=== PATIENT | female | born 1955 | race Caucasian/White ===

== ENCOUNTER 2018-08-25 13:43 | Day surgery (SDC) | payer MEDICARE, OTHER, SELFPAY ==
[2018-08-25] VITALS (9 sets, daily range): BP systolic 63–139; BP diastolic 37–79; PULSE 63–74; RESP 8–18; TEMP 36.1–36.7; O2SAT 90–100; BMI 24.7
[2018-08-25] MEDS: SODIUM CHLORIDE 0.9% 1,000 ML 200 ML IV (14:32)
--- NOTE | 2018-08-25 15:45 | PM.PREOP ---
Pre-operative Note Interval Note Pre-op Check: Yes History & Physical Reviewed by Physician Changes: No
[2018-08-25] MEDS: fentaNYL 250 MCG/5 ML INJ IV (16:06)
[2018-08-25] MEDS: MIDAZOLAM 5 MG/5 ML VIAL IV (16:06)
--- NOTE | 2018-08-25 16:13 | PM.OP.1 ---
Operative Date/Time/Diagnoses Date of procedure: 08/25/18 Time of procedure: 16:13 Pre-op diagnosis: Personal history of anal cancer Screening Post-op diagnosis: same Procedure & Clinicians Procedure: Colonoscopy to the cecum Same procedure as scheduled: Yes Indications: Last colonoscopy 2009 Surgeon: Kala Carty Click Yes if Unassisted: Yes Anesthesia Type: Sedation (Versed 4 mg; fentanyl 150 mcg) Operative Notes Findings: 1. Excellent prep 2. No polyps or mass lesions 3. No AV malformations 4. Very very minimal diverticulosis limited to the sigmoid region 5. Normal anal canal and anal mucosa 6. Essentially normal colonoscopy for age Closure Type: not applicable Specimen(s): none sent Estimated Blood Loss (mL): 0 Procedure in detail: After obtaining informed consent, the patient was brought to the GI suite and placed in the left lateral decubitus position on the examination table. After placement of appropriate monitors, the patient was given incremental doses of Versed and Fentanyl until an appropriate level of sedation was achieved. A time out was held per SCOAP protocol. A digital rectal examination was performed and did not reveal any masses or obstructing lesions. The colonoscope was gently passed into the patient's anus and the entire colon navigated to the level of the cecum with minimal difficulty. Once in the cecum, the scope was withdrawn being sure to go before and beyond all mucosal folds and prominences and get an excellent examination. The findings are noted above. At the level of the rectal vault, the scope was retroflexed and the internal anal canal was examined. The scope was straightened and air aspirated from the colon. The instrument was removed from the patient's body and the procedure was concluded. The patient was allowed to awaken from sedation without difficulty and taken to the post-anesthesia care unit in good condition. Total sedation time 14 min Total withdrawal time 9 min 57 sec Complications: none Condition: stable Disposition: PACU Plan for aftercare: 1. Discharge to home 2. Plan for next colonoscopy in 5 years or as clinically indicated
--- NOTE | 2018-08-25 16:22 | SUR.PHASEI ---
bp low, iv fluids wide open.
--- NOTE | 2018-08-25 16:30 | SUR.PHASEI ---
bp better, more awake, drank juice.
== END 2018-08-25 16:58 | disposition home or self-care (01) ==
PROVIDERS: PCP Family Medicine; Visit Provider Surgery
PROC: 0DJD8ZZ Inspection of Lower Intestinal Tract, Via Natural or Artificial Opening Endoscopic (ICD-10-PCS; CPT 45378; principal; 2018-08-25 16:00)
DX: Z85.038 Personal history of other malignant neoplasm of large intestine (principal); K57.30 Diverticulosis of large intestine without perforation or abscess without bleeding; F17.210 Nicotine dependence, cigarettes, uncomplicated
CPT/HCPCS: 45378; 99152; J2250; J3010

== ENCOUNTER → 2019-01-23 14:24 | Outpatient (CLI) | payer MEDICARE, OTHER, SELFPAY ==
[2019-01-23 14:47] LABS: Influenza A and B by PCR Rapid Negative (Negative)
== END ==
PROVIDERS: PCP Family Medicine; Visit Provider Physician Assistant
DX: R68.89 Other general symptoms and signs (principal)
CPT/HCPCS: 87400

== ENCOUNTER 2019-05-02 18:19 | Emergency (ER) | payer MEDICARE, OTHER, SELFPAY ==
--- NOTE | 2019-05-02 18:26 | ED_ITS ---
HPI - General Adult General Chief complaint: Neuro Symptoms/Deficit Stated complaint: ?mini strokes x2 days Time Seen by Provider: 05/02/19 18:25 Source: patient Mode of arrival: ambulatory Limitations: no limitations History of Present Illness HPI narrative: 63-year-old female here for evaluation of concerns for possible mini-stroke. She states that for the past 3-4 days she has had which she feels like is weakness in her left lower extremity. She states it is causing her to have some balance issues. Her states that she has had some word-finding issues however the patient states that that has been a while ago and not been over the past 3-4 days. She also has passed out in the past but again this is been some time ago. Patient states that was because she was not eating all that much and was dehydrated at the time. She does have a history of lower back pain. She thinks that maybe this is worsening over the past couple days. She has no urinary symptoms. Does have a history of breast cancer and anal cancer. Is not currently undergoing treatment. She does see an oncologist on a yearly basis. Her last oncologist visit was in June of last year. Her last PET scan was several years ago. Related Data Home Medications Medication Instructions Recorded Confirmed IBUPROFEN (Motrin / Advil) 800 mg PO PRN #0 03/25/10 01/23/19 Previous Rx's Medication Instructions Recorded nortriptyline 10 mg capsule 10 mg PO BEDTIME #30 cap 11/12/18 cyclobenzaprine 10 mg PO TID PRN #20 tab 05/02/19 meloxicam [Mobic] 7.5 mg PO DAILY #30 tab 05/02/19 Allergies Allergy/AdvReac Type Severity Reaction Status Date / Time No Known Drug Allergies Allergy Verified 01/23/19 14:19 Review of Systems Constitutional Denies chills, Reports fatigue, Denies frequent falls, Denies headache(s), Reports malaise and Reports weakness (Left lower extremity) Eyes Denies change in vision and Denies diplopia ENT Ears, Nose, Mouth, and Throat: Denies vertigo, Reports dizziness, Denies headache(s), Reports disequilibrium, Denies sinus pressure and Denies sore throat Cardiovascular Denies chest pain and Denies dyspnea Respiratory Denies cough and Denies dyspnea Gastrointestinal Gastrointestinal: Denies abdominal pain, Denies nausea and Denies vomiting Genitourinary Denies dysuria and Denies vaginal discharge Musculoskeletal Reports abnormal gait, Reports back pain, Denies myalgias, Denies arthralgias and Reports muscle weakness (Left lower extremity) Integumentary/Breasts Denies new lesions and Denies rash Neurologic Reports abnormal gait, Denies behavioral changes, Denies vertigo, Reports dizziness, Denies frequent falls, Denies headache(s), Reports disequilibrium and Reports weakness (Left lower extremity) Psychiatric Denies behavioral changes Endocrine Reports fatigue Hematologic/Lymphatic Denies easy bleeding and Denies easy bruising Allergic/Immunologic Denies urticaria PFSH Medical History Anal cancer (Acute) Breast cancer (Acute) H/O: hysterectomy (Resolved) Social History marital status: household members: spouse Smoking Status: Current every day smoker alcohol intake: never substance use type: does not use Exam Initial Vital Signs Initial Vital Signs: Vital Signs Pulse Rate 69 05/02/19 18:27 Respiratory Rate 20 05/02/19 18:27 Blood Pressure 228/96 H 05/02/19 18:27 Pulse Oximetry 96 05/02/19 18:27 Const General: cooperative, comfortable, well developed, well groomed and No acute distress HENAR Head: normal to inspection and normocephalic Resp Effort & Inspection: normal respiratory effort Auscultation: clear to auscultation bilaterally Cardio Rate: regular rate Rhythm: regular rhythm GI Inspection: non-distended Palpation: soft and No firm Skin Lesions: no lesions Rashes: no rashes Neuro General: alert, awake and oriented x3 Cranial Nerves: CN's II-XI intact bilaterally Cognition: normal cognition Speech: speech normal Gait: normal gait Motor: muscle tone normal throughout Sensory Exam: no sensory deficits noted Coordination: [id number] test normal Extrem General: normal to inspection and capillary refill normal Psych Appearance: grossly normal and well kempt Mood: congruent mood Scores GCS James coma scale eye opening: Spontaneous James coma scale verbal response: Orientated James coma scale motor response: Obey commands James coma scale total score: 15 NIH Stroke Scale Level of Conciousness: Alert, keenly responsive Ask month/age: Answers both questions correctly. Open/close eyes, close hand: Performs both tasks correctly Best gaze horizontal: Normal Visual guerra: No visual loss Facial palsy: Normal symetrical movement Left arm drift: No drift for full 10 sec Right arm drift: No drift for full 10 sec Left leg drift: No drift for full 10 sec Right leg drift: No drift for full 10 sec Limb ataxia: Absent Sensory on face/arms/legs: Normal, no sensory loss Best language: No aphasia, normal Dysarthria: Normal Extinction or inattention: No abnormality Total NIH Stroke scale score: 0 Course Orders Ordered: ED Orders 05/02/19 18:46 XR lumbar spine 2-3V Stat Vital Signs - 8 hr 05/02/19 18:27 05/02/19 19:29 Pulse Rate 69 60 Respiratory Rate 20 Blood Pressure 228/96 H Blood Pressure [Right Arm] 149/86 H Pulse Oximetry 96 96 Medical Decision Making Imaging Data Lumbar spine x-ray: Radiologist's impression: [address] [address] XRay Report Signed Patient: Maryjane Frost RMR#: [id number] : [id number]:[id number] Age/Sex: 63 / FDate of Service: 05/02/19 Loc: ED Accession Number: [id number] Procedure: XR lumbar spine 2-3V Ordering Provider: Gaston Abrams D.O. PROCEDURE: XR LUMBAR SPINE 2-3V INDICATIONS: LBP TECHNIQUE: 3 views of the lumbar spine were acquired. COMPARISON: None. FINDINGS: Bones: 5 [id number] vertebrae are present. There is normal bony alignment. No vertebral body compression fractures. No suspicious bony lesions. Mild to moderate multilevel degenerative changes of the lumbar spine as evidenced by facet arthropathy, a redo with the space height loss, and reactive endplate changes. Soft tissues: Overlying bowel gas pattern is normal. No suspicious soft tissue calcifications. IMPRESSION: Mild to moderate multilevel degenerative changes of the lumbar spine. Dictated by: Orestes Doshi M.D. on 05/02/2019 at 19:36 Approved by: Orestes Doshi M.D. on 05/02/2019 at 19:38 MDM Narrative Medical decision making narrative: Patient has a normal neurologic exam here in the emergency department. She ambulates without problems. No problems with speaking. Has no objective findings. I do suspect that her left leg symptoms are the result of worsening lower back pain. I did consider other etiologies such as metastasis given her history of breast cancer and anal cancer. The x- ray showed no acute pathology. I did inform the patient that this was not the most definitive test. I do not feel that an emergent MRI or PET scan is warranted. We did discuss this with the patient. Informed her that she should talk with her oncologist and her primary doctor about further testing. We did discuss return precautions. Was sent home with Mobic and muscle relaxers. The patient and her expressed understanding and agreement plan. Discharge Plan Departure Patient Disposition: Home Clinical Impression: Radicular neuropathy, Dizziness Discharge Date/Time: 05/02/19 20:10 Instructions: DI for Dizziness-Nonvertigo Activity Restrictions/Additional Instructions: Take the medications as directed. Contact your primary doctor tomorrow to discuss the indications for an MRI. I would also contact your oncologist tomorrow to discuss follow-up. Return to the emergency department for any new or worsening symptoms Prescriptions: New cyclobenzaprine 10 mg tablet 10 mg PO TID PRN (Reason: muscle spasm) Qty: 20 RF: 0 meloxicam [Mobic] 7.5 mg tablet 7.5 mg PO DAILY Qty: 30 RF: 0 No Action IBUPROFEN (Motrin / Advil) 800 mg PO PRN Qty: 0 RF: 0 nortriptyline 10 mg capsule 10 mg PO BEDTIME Qty: 30 RF: 11 Referrals: Sangeetha Lara DO [Primary Care Provider] -
[2019-05-02 18:27] VITALS: BP 228/96; PULSE 69; RESP 20; O2SAT 96
--- NOTE | 2019-05-02 18:46 | DI.RAD.S_ITS ---
PROCEDURE: XR LUMBAR SPINE 2-3V INDICATIONS: LBP TECHNIQUE: 3 views of the lumbar spine were acquired. COMPARISON: None. FINDINGS: Bones: 5 [id number] vertebrae are present. There is normal bony alignment. No vertebral body compression fractures. No suspicious bony lesions. Mild to moderate multilevel degenerative changes of the lumbar spine as evidenced by facet arthropathy, a redo with the space height loss, and reactive endplate changes. Soft tissues: Overlying bowel gas pattern is normal. No suspicious soft tissue calcifications. IMPRESSION: Mild to moderate multilevel degenerative changes of the lumbar spine. Dictated by: Orestes Doshi M.D. on 05/02/2019 at 19:36 Approved by: Orestes Dsohi M.D. on 05/02/2019 at 19:38
[2019-05-02 19:29] VITALS: BP 149/86; PULSE 60; O2SAT 96
== END 2019-05-02 20:10 | disposition home or self-care (01) ==
PROVIDERS: Emergency Provider Emergency Medicine; PCP Family Medicine
DX: M54.10 Radiculopathy, site unspecified (principal); R42 Dizziness and giddiness
CPT/HCPCS: 72100; 99282; 99283

== ENCOUNTER → 2019-06-09 07:38 | Outpatient (CLI) | payer MEDICARE, OTHER, SELFPAY ==
--- NOTE | 2019-06-09 | DI.MRI.S_ITS ---
PROCEDURE: MR LUMBAR SPINE WO/W CON INDICATIONS: LUMBAR RADICULOPATHY/HISTORY OF CANCER TECHNIQUE: Noncontrast sagittal T1 spin echo and T2 fast spin echo, sagittal STIR, axial T1 and T2 fast spin echo through the lumbar spine. In cases with scoliosis, additional coronal T2 fast spin echo may be performed. After the administration of contrast, sagittal and axial T1 spin echo with fat saturation through the lumbar spine. COMPARISON: None. FINDINGS: Image quality: Excellent. Alignment and curvature: There is trace L4-L5 anterolisthesis secondary to facet hypertrophy. Marrow: Marrow is of normal overall signal. No acute vertebral body compression fractures. No suspicious marrow enhancement. Spinal cord: Conus medullaris terminates at the L2 level. Visualized spinal cord demonstrates normal signal, without suspicious enhancement. Paraspinous soft tissues: No paravertebral masses or abnormal enhancement. L1-L2: Loss of the signal and slight loss of disc height. Moderate, diffuse disc bulge. Mild narrowing of the central canal. Mild right neural foraminal narrowing. No neural impingement. There is a fissure in the right foraminal annulus. L2-L3: Loss of this signal. Mild, diffuse disc bulge. No central stenosis. No neural foraminal narrowing. No neural impingement. L3-L4: Loss of the signal. Mild, diffuse disc bulge and mild bilateral facet hypertrophy. No central stenosis. Mild left neural foraminal narrowing. No neural impingement. L4-L5: Loss of disc signal. Mild, diffuse disc bulge. Mild right and moderate left facet hypertrophy. No central stenosis. Mild right and [id number] left neural foraminal narrowing. No neural impingement. L5-S1: Loss of the signal. Moderate, diffuse disc bulge. Mild bilateral facet hypertrophy. No central stenosis. Moderate to severe bilateral neural foraminal narrowing with slight compression of the exiting L5 nerve roots. There is a fissure in posterior annulus. IMPRESSION: 1. Multilevel degenerative disc disease. 2. Multilevel facet arthropathy. 3. Mild L1-L2 central canal narrowing. 4. Moderate to severe bilateral L5-S1 neural foraminal narrowing. Mild right and [id number] left L4-L5 neural foraminal narrowing. Mild right L1-L2 neural foraminal narrowing. Mild left L3-L4 neural foraminal narrowing. 5. Slight compression of the exiting bilateral L5 nerve roots secondary to neural foraminal narrowing. Please correlate with clinical data. 6. L1-L2 and L5-S1 disc annulus fissures. Dictated by: Alexandra Cee MD, PhD on 06/09/2019 at 13:21 Approved by: Alexandra Cee MD, PhD on 06/09/2019 at 13:30
--- NOTE | 2019-06-09 | DI.US.S_ITS ---
PROCEDURE: US ARTERIAL DUPLEX LE BI INDICATIONS: CLAUDICATION TECHNIQUE: Color and pulse Doppler interrogation was performed of both lower extremity arterial systems, with image documentation. COMPARISON: None. FINDINGS: Right lower extremity: Common femoral artery: 175 cm/sec, with triphasic flow. Deep femoral artery: 161 cm/sec, with monophasic flow. Proximal superficial femoral artery: 135 cm/sec, with biphasic flow. Mid superficial femoral artery: 78 cm/sec, with biphasic flow. Distal superficial femoral artery: 73 cm/sec, with biphasic flow. Popliteal artery: 48-57 cm/sec, with biphasic flow. Posterior tibial artery: 57 cm/sec, with monophasic flow. Anterior tibial artery/dorsalis pedis: 61 cm/sec, with a flow. García-scale imaging description: Mild calcific and soft plaque within the right lower extremity arterial vasculature Left lower extremity: Common femoral artery: 21 cm/sec, with monophasic flow. Deep femoral artery: 82 cm/sec, with reversed flow. Proximal superficial femoral artery: 68 cm/sec, with monophasic flow. Mid superficial femoral artery: There is free cm/sec, with monophasic flow. Distal superficial femoral artery: 23 cm/sec, with monophasic flow. Popliteal artery: 14 I-123 cm/sec, with monophasic flow. Posterior tibial artery: 12-13 cm/sec, with monophasic flow. Anterior tibial artery/dorsalis pedis: 12-14 cm/sec, with monophasic flow. García-scale imaging description: Moderate calcific and soft plaque. IMPRESSION: Left greater than right arterial insufficiency over the lower extremities bilaterally, including much of the left lower extremity having monophasic flow. This implies potential for pelvic arterial insufficiency at the common or external iliac artery level on the left. MR aortogram and lower extremity angiogram may be warranted depending on the clinical status and potential for surgical intervention. Dictated by: Ousmane Corado M.D. on 06/09/2019 at 13:19 Approved by: Ousmane Corado M.D. on 06/09/2019 at 13:32
== END ==
PROVIDERS: PCP Family Medicine; Visit Provider Family Medicine
DX: M51.16 Intervertebral disc disorders with radiculopathy, lumbar region (principal); M51.17 Intervertebral disc disorders with radiculopathy, lumbosacral region; M47.26 Other spondylosis with radiculopathy, lumbar region; M47.27 Other spondylosis with radiculopathy, lumbosacral region; M48.061 Spinal stenosis, lumbar region without neurogenic claudication; M48.07 Spinal stenosis, lumbosacral region
CPT/HCPCS: 72158; 93925; A9579

== ENCOUNTER → 2019-08-17 07:45 | Outpatient (CLI) | payer MEDICARE, OTHER, SELFPAY ==
--- NOTE | 2019-08-17 | DI.US.S_ITS ---
PROCEDURE: US ARTERIAL DUPLEX LE BI INDICATIONS: PERIPHERAL VASCULAR DISEASE, UNSPECIFIED TECHNIQUE: Color and pulse Doppler interrogation was performed of both lower extremity arterial systems, with image documentation. COMPARISON: [facility], , ARTERIAL DUPLEX LE BI, 06/09/2019, 8:29. FINDINGS: Right lower extremity: Right external iliac artery: 294 cm/s, biphasic flow Common femoral artery: Proximal 237 cm/s, distal 162 cm/sec, with biphasic flow. Deep femoral artery: 98 cm/sec, with biphasic flow. Proximal superficial femoral artery: 129 cm/sec, with biphasic flow. Mid superficial femoral artery: 73 cm/sec, with biphasic flow. Distal superficial femoral artery: 75 cm/sec, with biphasic flow. Popliteal artery: 48 cm/sec, with biphasic flow. Posterior tibial artery: 63, 43 cm/sec, with biphasic flow. Anterior tibial artery/dorsalis pedis: 47, 60 cm/sec, with biphasic flow. García-scale imaging description: External iliac artery stenosis. Proximal common femoral artery stenosis. Widely patent vasculature from the SFA to the ankle, with at least two-vessel runoff. Biphasic waveforms. Left lower extremity: External iliac artery: Occluded Common femoral artery: Proximal 58 cm/s, mid 183 cm/sec, distal 19 cm/s, with monophasic flow. Deep femoral artery: 11 cm/sec, with monophasic flow. Proximal superficial femoral artery: 83 cm/sec, with monophasic flow. Mid superficial femoral artery: 29 cm/sec, with monophasic flow. Distal superficial femoral artery: 22 cm/sec, with monophasic flow. Popliteal artery: 19 cm/sec, with monophasic flow. Posterior tibial artery: Proximal 16 cm/s, distal cm/sec, with monophasic flow. Anterior tibial artery/dorsalis pedis: Proximal 8 cm/s, distal 13 cm/sec, with monophasic flow. García-scale imaging description: Occluded left external iliac artery. Diffuse common femoral artery stenotic disease, wide patency below the common femoral artery with at least two-vessel runoff, but dampened, monophasic flow IMPRESSION: 1. Right lower extremity duplex arterial ultrasound significant for right external iliac artery stenosis, common femoral stenotic disease, and wide patency from the SFA to the ankle with at least two-vessel runoff. 2. Left lower extremity duplex arterial ultrasound significant for occlusion of the external iliac artery, diffuse common femoral disease, and patency below the common femoral with dampened monophasic flow. Dictated by: Manjit Muñoz M.D. on 08/17/2019 at 16:26 Approved by: Manjit Muñoz M.D. on 08/17/2019 at 16:56
== END ==
PROVIDERS: PCP Family Medicine; Visit Provider Family Medicine
DX: I70.203 Unspecified atherosclerosis of native arteries of extremities, bilateral legs (principal)
CPT/HCPCS: 93925

== ENCOUNTER 2019-10-08 14:20 | Emergency (ER) | payer MEDICARE, OTHER, SELFPAY ==
[2019-10-08 14:22] VITALS: BP 176/103; PULSE 78; RESP 12; TEMP 36.2; O2SAT 98; BMI 24.7
--- NOTE | 2019-10-08 14:56 | PC.NURSE ---
dropped pt off and told the senior front end web developer that she almost passed out. states he was talking to her and she didn't respond. no loc. pt doesn't remember the event
[2019-10-08 15:00] VITALS: BP 165/88; PULSE 64; RESP 9; O2SAT 97
--- NOTE | 2019-10-08 15:06 | ED.DIZZY ---
HPI - Dizziness General Chief Complaint: Syncope Stated Complaint: passed out Time Seen by Provider: 10/08/19 14:33 Source: patient Mode of arrival: Ambulatory History of Present Illness HPI Narrative: Patient comes emergency department stating that her told her he was ?dropping her off?. She states she has felt tired, and that she went to bed quite late last night, but that she has not otherwise felt ill. She states that she believes that her wanted to drop her office emergency department so that she could not be there for his doctor's appointment, which he was on his way to. Patient states she does not have any pain in her chest or abdomen. No shortness of breath. She states she feels a little more tired than she should feel for the amount of sleep she got. No other complaints at this time. Related Data Home Medications Medication Instructions Recorded Confirmed acetaminophen [Tylenol Extra 1,000 mg PO BEDTIME 10/08/19 10/08/19 Strength] aspirin 81 mg PO DAILY 10/08/19 10/08/19 bupropion HCl 150 mg PO DAILY 10/08/19 10/08/19 losartan 100 mg PO QPM 10/08/19 10/08/19 meloxicam 7.5 mg PO BID 10/08/19 10/08/19 Allergies Allergy/AdvReac Type Severity Reaction Status Date / Time No Known Drug Allergies Allergy Verified 01/23/19 14:19 Review of Systems Constitutional Constitutional: Denies chills, Reports fatigue, Denies fever(s), Denies frequent falls, Denies lethargy and Denies weakness Eyes Eyes: Denies change in vision, Denies eye discharge, Denies irritation and Denies loss of vision ENT Ears, Nose, Mouth, and Throat: Denies change in voice, Denies dizziness, Denies neck pain, Denies sore throat and Denies throat swelling Cardiovascular Cardiovascular: Denies chest pain, Denies irregular heart rhythm, Denies lightheadedness, Denies palpitations, Denies dyspnea, Denies dyspnea on exertion and Denies orthopnea Respiratory Respiratory: Denies cough, Denies dyspnea, Denies dyspnea on exertion and Denies wheezing Gastrointestinal Gastrointestinal: Denies abdominal pain, Denies change in bowel habits, Denies diarrhea, Denies nausea and Denies vomiting Genitourinary Genitourinary: Denies hematuria, Denies flank pain, Denies urinary incontinence and Denies urinary urgency Musculoskeletal Musculoskeletal: Denies back pain, Denies muscle weakness, Denies neck pain, Denies numbness and Denies tingling Integumentary/Breasts Skin/Breast: Denies pruritus, Denies erythema, Denies rash and Denies wounds Neurologic Neurologic: Denies behavioral changes, Denies confusion, Denies dizziness, Denies frequent falls, Denies loss of vision, Denies numbness, Denies tingling and Denies weakness Psychiatric Psychiatric: Denies anxiety, Denies behavioral changes, Denies confusion, Denies depression, Denies homicidal ideation and Denies suicidal ideation Endocrine Endocrine: Reports fatigue, Denies flushing and Denies palpitations Hematologic/Lymphatic Hematologic/Lymphatic: Denies easy bruising Allergic/Immunologic Allergic/Immunologic: Denies urticaria, Denies throat swelling and Denies wheezing Patient History Medical History Anal cancer (Acute) Breast cancer (Acute) Surgical History H/O: hysterectomy (Resolved) Social History marital status: household members: spouse Smoking Status: Current every day smoker alcohol intake: never substance use type: does not use Smoking Status: Current every day smoker Exam Initial Vital Signs Initial Vital Signs: Vital Signs Temperature 97.2 F L 10/08/19 14:22 Pulse Rate 78 10/08/19 14:22 Respiratory Rate 12 10/08/19 14:22 Blood Pressure 176/103 H 10/08/19 14:22 Pulse Oximetry 98 10/08/19 14:22 Const General: cooperative and well developed Nutritional Appearance: well nourished Orientation: alert, awake, oriented x3 and not confused [facility] Head: normocephalic and atraumatic Ears: external ears normal Nose: external nose normal and No nasal discharge Face and sinus: face symmetric and No dry mucous membranes Mouth: oral mucosae normal and moist mucous membranes Teeth and gingiva: dentition normal Eyes General: appearance normal, both eyes and all related structures Eyelids: eyelids normal Conjunctivae: conjunctivae normal Sclera: sclerae normal Pupils: PERRL EOM: EOM intact bilaterally Neck Neck: normal visual inspection, trachea midline, No lymphadenopathy, No midline deformity and No JVD Lymphatic: No lymphedema Chest Chest: normal inspection of the chest Resp Effort & Inspection: normal respiratory effort, able to speak in complete sentences, no respiratory distress and no use of accessory muscles Auscultation: clear to auscultation bilaterally, no rales, no rhonchi and no wheezes Cardio Rate: regular rate Rhythm: regular rhythm Heart Sounds: no click, no gallops, no murmurs and no rubs Pulses: normal peripheral pulses GI Inspection: non-distended Palpation: soft, no hepatosplenomegaly, No guarding, No pulsatile mass and No tender Auscultation: normal bowel sounds Back/Spine/Pelvis Back: No CVA tenderness Cervical Spine: cervical ROM normal and No pain with cervical ROM Thoracic/Lumbar Spine: thoracic and lumbar spine normal to inspection Skin General: no rashes or lesions noted, No jaundice and No petechiae Neuro General: alert, oriented x3, gait normal and no focal motor deficits Speech: speech normal Extrem General: full ROM, no clubbing, cyanosis or edema, no pedal edema and no calf tenderness Psych Appearance: well kempt Mental Status: mental status grossly normal Attitude: cooperative Thought Content: normal and suicidality Judgment: judgment good Course Course Course Narrative: Patient was worked up with labs and given a L of 0.9 normal saline. EKG was unremarkable, as were labs. The patient reported absolutely no symptoms in the emergency department other than feeling tired, and suspected that her significant other did not want her at his doctor's appointment. I did not find any emergent condition affecting this patient at this time, and I felt she was stable for discharge home. We have discussed home management of the symptoms, as well as the usual indications for return. Orders Ordered: Discontinued Medications Sodium Chloride (Normal Saline 0.9%) 1,000 mls @ 1,000 mls/hr IV BOLUS ONE Stop: 10/08/19 16:15 Last Infusion: 10/08/19 16:42 Dose: 0 mls/hr Documented by: Admin: 10/08/19 15:37 Dose: 1,000 mls/hr Documented by: DIAZ Vital Signs Vital signs: Vital Signs - 8 hr 10/08/19 14:22 Temperature 97.2 F L Pulse Rate 78 Respiratory Rate 12 Blood Pressure 176/103 H Pulse Oximetry 98 MDM - Dizziness Medical Records Attestation: I reviewed the patient's medical records. Lab Data Attestation: I reviewed the patient's lab results. Result diagrams: 10/08/19 14:40 10/08/19 14:40 Labs: Lab Results 10/08/19 10/08/19 Range/Units 14:40 14:40 WBC 6.3 (4.5-11.0) X10^3/uL RBC 5.14 (4.0-5.2) X10^6/uL Hgb 16.7 H (12.0-16.0) g/dL Hct 48.9 H (36-46) % MCV 95.1 (80-100) fL MCH 32.5 (26-34) PG MCHC 34.1 (30-36) % RDW 13.4 (11.6-14.8) % Plt Count 196 (150-400) X10^3/uL Neut % (Auto) 46.7 L (50-75) % Lymph % (Auto) 45.4 H (25-40) % Kings % (Auto) 5.9 (3-14) % Eos % (Auto) 1.3 L (2-4) % Baso % (Auto) 0.7 (0-2) % Neut # (Auto) 2900 (4391-0194) /uL Lymph # (Auto) 2900 (2700-9214) /uL Kings # (Auto) 400 (0-900) /uL Eos # (Auto) 100 (0-450) /uL Baso # (Auto) 0 (0-100) /uL Sodium 140 (137-145) mmol/L Potassium 4.0 (3.4-5.1) mmol/L Chloride 106 (98-107) mmol/L Carbon Dioxide 26 (22-32) mmol/L BUN 18 H (7-17) mg/dL Creatinine 0.80 (0.52-1.04) mg/dL Estimated GFR > 60.0 (>60) mL/min BUN/Creatinine Ratio 22.5 H (6-22) Glucose 95 (80-110) mg/dL Calcium 9.7 (8.4-10.2) mg/dL Total Bilirubin 1.5 H (0.2-1.3) mg/dL AST 31 (14-36) IU/L ALT 21 (<35) IU/L Alkaline Phosphatase 80 (38-126) U/L Total Protein 7.7 (6.3-8.2) g/dL Albumin 4.6 (3.5-5.0) g/dL Globulin 3.1 (1.7-4.1) g/dL Albumin/Globulin Ratio 1.5 (1.0-2.8) ECG Data Attestation: I personally reviewed and interpreted this ECG as follows: (See below) Interpretation: Twelve lead EKG performed October 08, 2019 at 2:29 p.m., as follows: Regular ventricular rhythm with a rate of 71 beats per minute SD interval 148 milliseconds QRS duration 86 millisecond QTC interval [address] T wave changes Interpretation: Normal sinus rhythm; possible left atrial enlargement; no signs of acute ischemia; borderline EKG as interpreted by ED MD. Discharge Plan Departure Patient Disposition: Home Clinical Impression: Fatigue Qualifiers: Fatigue type: other Qualified Code(s): R53.83 - Other fatigue Discharge Date/Time: 10/08/19 16:46 Instructions: DI for Fatigue Activity Restrictions/Additional Instructions: Your labs and EKG look good. There is no evidence of a serious or emergent condition causing your tiredness. Please follow up with your primary care physician if you feel as though you're excessively fatigued. Prescriptions: No Action meloxicam 15 mg tablet 7.5 mg PO BID RF: 0 losartan 100 mg tablet 100 mg PO QPM RF: 0 bupropion HCl 150 mg tablet extended release 24 hr 150 mg PO DAILY RF: 0 aspirin 81 mg Tablet,Delayed Release (Dr/Ec) 81 mg PO DAILY RF: 0 acetaminophen [Tylenol Extra Strength] 500 mg Tablet 1,000 mg PO BEDTIME RF: 0 Referrals: Sangeetha Lara DO [Primary Care Provider] -
[2019-10-08] MEDS: SODIUM CHLORIDE 0.9% 1,000 ML 1000 ML IV (15:37)
[2019-10-08 15:47] LABS: Add Manual Diff / Slide Review NO; Basophils Absolute Auto 0 /uL (0-100); Basophils Percent Auto 0.7 % (0-2); Eosinophils Absolute Auto 100 /uL (0-450); Eosinophils Percent Auto 1.3 % (2-4); Hematocrit 48.9 % (36-46); Hemoglobin 16.7 g/dL (12.0-16.0); Lymphocytes Absolute Auto 2900 /uL (1100-4500); Lymphocytes Percent Auto 45.4 % (25-40); Mean Corpuscular HGB Conc 34.1 % (30-36); Mean Corpuscular Hemoglobin 32.5 PG (26-34); Mean Corpuscular Volume 95.1 fL (80-100); Monocytes Absolute Auto 400 /uL (0-900); Monocytes Percent Auto 5.9 % (3-14); Neutrophils Absolute Auto 2900 /uL (1500-7000); Neutrophils Percent Auto 46.7 % (50-75); Platelet Count 196 X10^3/uL (150-400); Red Blood Cell Count 5.14 X10^6/uL (4.0-5.2); Red Cell Distribution Width 13.4 % (11.6-14.8); White Blood Cell Count 6.3 X10^3/uL (4.5-11.0)
[2019-10-08 15:51] LABS: Alanine Aminotransferase 21 IU/L (<35); Albumin 4.6 g/dL (3.5-5.0); Albumin Globulin Ratio 1.5 (1.0-2.8); Alkaline Phosphatase 80 U/L (38-126); Aspartate Aminotransferase 31 IU/L (14-36); BUN Creatinine Ratio 22.5 (6-22); Bilirubin Total 1.5 mg/dL (0.2-1.3); Blood Urea Nitrogen 18 mg/dL (7-17); Calcium 9.7 mg/dL (8.4-10.2); Carbon Dioxide 26 mmol/L (22-32); Chloride 106 mmol/L (98-107); Estimated Glomerular Filt Rate > 60.0 mL/min (>60); Globulin 3.1 g/dL (1.7-4.1); Glucose 95 mg/dL (80-110); HEMOLYSIS 19 (0-50); Sodium 140 mmol/L (137-145); Total Protein 7.7 g/dL (6.3-8.2)
[2019-10-08 16:00] VITALS: BP 189/94; PULSE 70; RESP 18; O2SAT 98
[2019-10-08 16:43] VITALS: BP 181/86; PULSE 66; RESP 16; O2SAT 99
== END 2019-10-08 16:46 | disposition home or self-care (01) ==
PROVIDERS: Emergency Provider Emergency Medicine; PCP Family Medicine
DX: R53.83 Other fatigue (principal); R55 Syncope and collapse
CPT/HCPCS: 36415; 80053; 85025; 93005; 96360; 99283; 99284

== ENCOUNTER → 2022-03-07 15:51 | Outpatient (CLI) | payer MEDICARE, OTHER, SELFPAY ==
--- NOTE | 2022-03-07 | DI.ECHO.S_ITS ---
[place] +---------+ [facility] +---------+ : : [address] : : : : [place] : : : : [id number] : : : : Phone: [phone]+ Echocardiogram Report + + :Name: EVAN VILLANUEVA Study Date: 03/07/2022 Height: 63 in : :[facility] ReadingLocation: Weight: 135 lb : : Gender: Female BSA: 1.6 m2 : :: 1955 Age: 66 yrs BP: 182/90 mmHg: :Reason For Study: Abnormal ECG : :Ordering Physician: : :CONSTANTINO DOBSON Performed By: Francois Rivas : :Referring: CONSTANTINO DOBSON : + + Interpretation Summary The ejection fraction is estimated to be 55-60%. There is mild mitral regurgitation. The mitral valve leaflets appear moderately thickened, but open well. There is mild mitral annular calcification. There is mild tricuspid regurgitation. The right ventricular systolic pressure is estimated to be at least 35 mmHg based on an estimated right atrial pressure of 3 mm Hg. Procedure: A two-dimensional transthoracic echocardiogram with color flow and Doppler was performed. The study quality was technically adequate. Comparison is made with the echocardiogram of 12/29/2013. Left Ventricle: The left ventricle is normal in size. Left ventricular wall thickness is mildly increased. Left ventricular systolic function is normal. The ejection fraction is estimated to be 55-60%. There are no focal wall motion abnormalities. Diastolic parameters suggest a pseudonormalization pattern, consistent with probable elevated filling pressures. Right Ventricle: The right ventricle is normal in size and function. Atria: Both atria are normal in size. The interatrial septum grossly appears intact with no obvious evidence for an atrial septal defect. Mitral Valve: The mitral valve leaflets appear moderately thickened, but open well. There is mild mitral annular calcification. There is mild mitral regurgitation. Aortic Valve: The aortic valve is normal in structure and function. No aortic regurgitation is present. Tricuspid Valve: There is mild tricuspid regurgitation. The right ventricular systolic pressure is estimated to be at least 35 mmHg based on an estimated right atrial pressure of 3 mm Hg. Pulmonic Valve: The pulmonic valve is not well seen, but is grossly normal. There is no pulmonic valvular regurgitation. Great Vessels: The aortic root is normal size. The ascending aorta could not be visualized. The IVC is of normal diameter and collapses greater than 50% with a sniff. This suggests a low right atrial pressure of 3 mm Hg. Pericardium/ Pleura There is no pericardial effusion. There is no pleural effusion. MMode/2D Measurements & Calculations LVIDd: 5.0 cm LVOT diam: 1.8 cm LVIDs: 3.6 cm Ao root diam: 2.7 cm FS: 28.0 % IVSd: 1.1 cm LVPWd: 1.0 cm LV brown. diameter/BSA (cm/m^2): 3.1 LV sys. diameter/BSA (cm/m^2): 2.2 LA dimension: 3.2 cm RA long axis: 3.5 cm LA A2 area: 16.1 cm2 LA A4 area: 17.2 cm2 LA length (vol): 4.9 cm LA vol: 48.5 ml LA vol index: 29.6 ml/m2 TAPSE_phl: 2.3 cm Doppler Measurements & Calculations Ao V2 max: 126.0 cm/sec LVOT Max Chris: 119.0 cm/sec Ao V2 mean: 84.1 cm/sec LV V1 max P.7 mmHg Ao max P.0 mmHg LV V1 VTI: 25.8 cm Ao mean P.0 mmHg JOSE(I,D): 2.5 cm2 Ao V2 VTI: 26.7 cm JOSE(V,D): 2.4 cm2 sev ratio: 0.97 JOSE indexed to BSA (cm^2/m^2): 1.5 MV E max chris: 114.0 cm/sec TR max chris: 281.0 cm/sec MV A max chris: 126.0 cm/sec TR max P.6 mmHg MV E/A: 0.90 Med Peak E' Chris: 5.8 cm/sec E/E' med: 19.7 Lat Peak E' Chris: 7.1 cm/sec E/E' lat: 16.1 E/e' average: 17.9 MV dec time: 0.29 sec MV P1/2t: 112.1 msec MV P1/2t max chris: 152.0 cm/sec SV(LVOT): 65.7 ml MVA(P1/2t): 2.0 cm2 AV VR_phl: 0.94 MV P1/2t-pr_phl: 97.5 msec JOSE(VTI)/BSA_phl: 1.5 Reading Physician:09:26 AM
== END ==
PROVIDERS: PCP Nurse Practitioner Family; Referring Provider Nurse Practitioner Family; Visit Provider Nurse Practitioner Family
DX: R94.31 Abnormal electrocardiogram [ECG] [EKG] (principal); R00.2 Palpitations; I08.1 Rheumatic disorders of both mitral and tricuspid valves; I10 Essential (primary) hypertension
CPT/HCPCS: 93306

== ENCOUNTER 2022-10-25 20:19 | Emergency (ER) | payer MEDICARE, OTHER, SELFPAY ==
[2022-10-25] VITALS (9 sets, daily range): BP systolic 120–155; BP diastolic 65–86; PULSE 79–88; RESP 24; TEMP 37.2; O2SAT 89–97; BMI 24.4
--- NOTE | 2022-10-25 20:41 | DI.RAD.S_ITS ---
PROCEDURE: XR CHEST 1V INDICATIONS: Shortness of breath TECHNIQUE: One view of the chest was acquired. COMPARISON: None. FINDINGS: Surgical changes and devices: Surgical clips left lower lung area, versus chest wall. This could represent evidence of prior breast carcinoma surgery.. Lungs and pleura: Lungs are clear but there is abnormal pleural thickening at the right lateral mid and lower hemithorax.. No pleural effusions or pneumothorax. Mediastinum: Mediastinal contours appear normal. Heart size is normal. Bones and chest wall: No suspicious bony lesions. Overlying soft tissues appear unremarkable. IMPRESSION: A band of right lateral pleural thickening is present through the mid and lower hemithorax, no definite pneumonia found, left-sided mediastinal or chest wall surgical clips potentially evidence of prior breast carcinoma surgery. Dictated by: Ousmane Corado M.D. on 10/25/2022 at 20:59 Approved by: Ousmane Corado M.D. on 10/25/2022 at 21:01
[2022-10-25 21:09] LABS: Mean Corpuscular HGB Conc 33.5 % (30-36); Mean Corpuscular Hemoglobin 31.6 PG (26-34); Mean Corpuscular Volume 94.4 fL (80-100); Prothrombin Time 11.5 SECONDS (10.1-12.7)
[2022-10-25 21:13] LABS: Alanine Aminotransferase 44 IU/L (<35); Albumin 3.9 g/dL (3.5-5.0); Albumin Globulin Ratio 1.2 (1.0-2.8); Alkaline Phosphatase 80 U/L (38-126); Aspartate Aminotransferase 26 IU/L (14-36); BUN Creatinine Ratio 24.4 (6-22); Blood Urea Nitrogen 21 mg/dL (7-17); Carbon Dioxide 29 mmol/L (22-32); Chloride 105 mmol/L (98-107); Estimated Glomerular Filt Rate > 60 mL/min (>60); Globulin 3.2 g/dL (1.7-4.1); Glucose 127 mg/dL (80-110); HEMOLYSIS 34 (0-50); Lactate (Lactic Acid) 1.8 mmol/L (0.7-2.1); Potassium 3.7 mmol/L (3.4-5.1); Sodium 143 mmol/L (137-145); Total Protein 7.1 g/dL (6.3-8.2)
[2022-10-25 21:18] LABS: Hematocrit 42.1 % (36-46); Hemoglobin 14.1 g/dL (12.0-16.0); Platelet Count 215 X10^3/uL (150-400); Red Blood Cell Count 4.45 X10^6/uL (4.0-5.2); Red Cell Distribution Width 13.4 % (11.6-14.8); White Blood Cell Count 6.8 X10^3/uL (4.5-11.0)
[2022-10-25 21:19] LABS: Add Manual Diff / Slide Review NO; Basophils Percent Auto 0.6 % (0-2); Eosinophils Percent Auto 1.3 % (2-4); Monocytes Percent Auto 8.5 % (3-14); Neutrophils Percent Auto 49.1 % (50-75)
[2022-10-25 21:20] LABS: Basophils Absolute Auto 0 /uL (0-100); Eosinophils Absolute Auto 100 /uL (0-450); Lymphocytes Absolute Auto 2800 /uL (1100-4500); Lymphocytes Percent Auto 40.6 % (25-40); Monocytes Absolute Auto 600 /uL (0-900); Neutrophils Absolute Auto 3300 /uL (1500-7000)
[2022-10-25 21:25] LABS: NT-proBNP (BNP-Adult 18+) 120 pg/mL (<125); Troponin I < 0.012 ng/mL (0.01-0.034)
[2022-10-25 21:48] LABS: Influenza A - CEPHEID Flu A NEGATIVE (NEGATIVE); Influenza B - CEPHEID Flu B NEGATIVE (NEGATIVE); Respiratory Syncytial Virus Negative (Negative)
[2022-10-25 21:51] LABS: COVID-19 CEPHEID 4-PLEX PCR Negative (Negative)
--- NOTE | 2022-10-25 22:00 | PC.NURSE ---
RT at bedside
--- NOTE | 2022-10-25 23:00 | PC.NURSE ---
Resting quietly in NAD - no needs voiced at this time - PWD with respirations equal and unlabored bilaterally - speaking in clear full sentences
--- NOTE | 2022-10-25 23:08 | ED_ITS ---
HPI - General Adult General Chief complaint: Shortness of Breath/Dyspnea Stated complaint: SOB Time Seen by Provider: 10/25/22 23:08 Source: patient and EMS Mode of arrival: EMS History of Present Illness HPI narrative: 67-year-old woman with a history of breast cancer post lumpectomy, hypertension who presents with upper respiratory symptoms for the last 2 weeks. Initially started with cough, intermittent fevers and over the last 4-5 days has gotten significantly worsened today she was having severe exertional dyspnea to the point that she was having difficulty walking across a room. She notes that her sputum has changed from thin clear material to a thick yellow debris at this time. She has not had any fevers for a couple of days. She has been using her 's nebulizer over the last couple of days and has found that it has been quite useful. She has no reactive airway disease diagnosis personally. She is not noting any lower extremity edema, no palpitations, no headaches, no vomiting, diarrhea, abdominal pain, flank pain, dysuria. Related Data Home Medications Medication Instructions Recorded Confirmed aspirin 81 mg tablet,delayed 81 mg PO DAILY 10/08/19 08/22/20 release losartan 100 mg tablet 100 mg PO QPM 10/08/19 08/22/20 Previous Rx's Medication Instructions Recorded benzonatate 200 mg capsule 200 mg PO BID-TID PRN cough #14 10/26/22 caps prednisone 20 mg tablet 40 mg PO DAILY #10 tabs 10/26/22 Allergies Allergy/AdvReac Type Severity Reaction Status Date / Time nickel Allergy Unknown Verified 08/22/20 10:05 Review of Systems Review of Systems Narrative: Remainder of complete review of systems is otherwise unremarkable except for that included in the HPI. Patient History Medical History (Updated 10/26/22 @ 01:20 by Irma Kapadia MD) Anal cancer Breast cancer HTN (hypertension) Surgical History H/O: hysterectomy Hx of lumpectomy Family History Mother Hypertension Father Hypertension Social History marital status: household members: spouse occupational status: previously employed Smoking Status: Current every day smoker alcohol intake: never substance use type: does not use Smoking Status: Current every day smoker Exam Initial Vital Signs Initial Vital Signs: Vital Signs Temperature 98.9 F 10/25/22 20:28 Pulse Rate 88 10/25/22 20:28 Respiratory Rate 24 10/25/22 20:28 Blood Pressure 134/70 10/25/22 20:28 Pulse Oximetry 89 L 10/25/22 20:28 Oxygen Delivery Method 10/25/22 20:28 General: Pale, fatigued but in no acute distress. Able to give a complete and coherent history. HEENT: Moist mucous membranes, normal sclera with reactive pupils, Neck: No JVD, supple Respiratory: Lungs are clear to auscultation, no wheezing no rales no rhonchi. Full and symmetrical air movement without accessory muscle use or retractions. Cardiac: Regular rate and rhythm no murmurs no bruits Abdomen: Soft, nontender, good bowel tones, no flank pain Skin: Warm and dry, no rashes Neurologic: Grossly neurologically intact with no obvious asymmetries or abnormalities Extremities: No trauma, well perfused Psych: Cooperative, appropriate insight and affect Course Orders Ordered: ED Orders 10/25/22 20:25 Covid-19 + FLU A/B + RSV - PCR Stat 10/25/22 20:41 XR chest 1V Stat RT Consult Eval and Treat NOW 10/25/22 20:50 Complete Blood Count AUTO DIFF Stat Comprehensive Metabolic Panel Stat Lactate (Lactic Acid) Stat NT-proBNP (BNP-Adult 18+) Stat Prothrombin Time INR Stat Troponin I Stat 10/25/22 23:25 CT angio chest PE protocol Stat 10/26/22 00:00 Sputum Culture Stat Discontinued Medications Benzonatate (Benzonatate 100 Mg Capsule) 100 mg PO NOW ONE Stop: 10/25/22 23:26 Last Admin: 10/26/22 00:42 Dose: 100 mg Documented By: SB Vital Signs Vital signs: Vital Signs - 8 hr 10/25/22 20:28 10/25/22 20:48 10/25/22 21:00 Temperature 98.9 F Pulse Rate 88 88 Respiratory Rate 24 Blood Pressure 134/70 149/70 H Pulse Oximetry 89 L 97 Oxygen Delivery Method Room Air Oxygen Flow Rate 10/25/22 21:00 10/25/22 21:30 10/25/22 21:30 Temperature Pulse Rate 84 84 Respiratory Rate Blood Pressure 149/80 H Pulse Oximetry 96 97 Oxygen Delivery Method Nasal Cannula Oxygen Flow Rate 2 10/25/22 22:00 10/25/22 22:01 10/25/22 22:01 Temperature Pulse Rate 87 83 Respiratory Rate Blood Pressure 152/75 H Pulse Oximetry 97 97 Oxygen Delivery Method Nasal Cannula Oxygen Flow Rate 2 10/25/22 22:30 10/25/22 22:30 10/25/22 23:00 Temperature Pulse Rate 79 Respiratory Rate Blood Pressure 155/69 H 143/65 H Pulse Oximetry 96 Oxygen Delivery Method Oxygen Flow Rate 10/25/22 23:00 10/25/22 23:30 10/25/22 23:30 Temperature Pulse Rate 85 86 Respiratory Rate Blood Pressure 120/86 Pulse Oximetry 97 93 Oxygen Delivery Method Oxygen Flow Rate 10/26/22 00:00 Temperature Pulse Rate 82 Respiratory Rate Blood Pressure Pulse Oximetry 97 Oxygen Delivery Method Oxygen Flow Rate Medical Decision Making Lab Data Result diagrams: 10/25/22 20:50 10/25/22 20:50 Labs: Lab Results 10/25/22 10/25/22 10/25/22 Range/Units 20:25 20:50 20:50 WBC 6.8 (4.5-11.0) X10^3/uL RBC 4.45 (4.0-5.2) X10^6/uL Hgb 14.1 (12.0-16.0) g/dL Hct 42.1 (36-46) % MCV 94.4 (80-100) fL MCH 31.6 (26-34) PG MCHC 33.5 (30-36) % RDW 13.4 (11.6-14.8) % Plt Count 215 (150-400) X10^3/uL Neut % (Auto) 49.1 L (50-75) % Lymph % (Auto) 40.6 H (25-40) % [place] % (Auto) 8.5 (3-14) % Eos % (Auto) 1.3 L (2-4) % Baso % (Auto) 0.6 (0-2) % Neut # (Auto) 3300 (5954-0393) /uL Lymph # (Auto) 2800 (7555-3319) /uL [place] # (Auto) 600 (0-900) /uL Eos # (Auto) 100 (0-450) /uL Baso # (Auto) 0 (0-100) /uL PT 11.5 (10.1-12.7) SECONDS INR 1.0 (0.9-1.3) Sodium (137-145) mmol/L Potassium (3.4-5.1) mmol/L Chloride (98-107) mmol/L Carbon Dioxide (22-32) mmol/L BUN (7-17) mg/dL Creatinine (0.52-1.04) mg/dL Estimated GFR (>60) mL/min BUN/Creatinine Ratio (6-22) Glucose (80-110) mg/dL Lactate (0.7-2.1) mmol/L Calcium (8.4-10.2) mg/dL Total Bilirubin (0.2-1.3) mg/dL AST (14-36) IU/L ALT (<35) IU/L Alkaline Phosphatase (38-126) U/L Troponin I (0.01-0.034) ng/mL NT-Pro-B Natriuret Pep (<125) pg/mL Total Protein (6.3-8.2) g/dL Albumin (3.5-5.0) g/dL Globulin (1.7-4.1) g/dL Albumin/Globulin Ratio (1.0-2.8) SARS-CoV-2 (PCR) Negative (Negative) Influenza A (RT-PCR) Flu a negative (NEGATIVE) Influenza B (RT-PCR) Flu b negative (NEGATIVE) RSV (PCR) Negative (Negative) 10/25/22 10/25/22 Range/Units 20:50 20:50 WBC (4.5-11.0) X10^3/uL RBC (4.0-5.2) X10^6/uL Hgb (12.0-16.0) g/dL Hct (36-46) % MCV (80-100) fL MCH (26-34) PG MCHC (30-36) % RDW (11.6-14.8) % Plt Count (150-400) X10^3/uL Neut % (Auto) (50-75) % Lymph % (Auto) (25-40) % [place] % (Auto) (3-14) % Eos % (Auto) (2-4) % Baso % (Auto) (0-2) % Neut # (Auto) (2165-9548) /uL Lymph # (Auto) (4161-2518) /uL [place] # (Auto) (0-900) /uL Eos # (Auto) (0-450) /uL Baso # (Auto) (0-100) /uL PT (10.1-12.7) SECONDS INR (0.9-1.3) Sodium 143 (137-145) mmol/L Potassium 3.7 (3.4-5.1) mmol/L Chloride 105 (98-107) mmol/L Carbon Dioxide 29 (22-32) mmol/L BUN 21 H (7-17) mg/dL Creatinine 0.86 (0.52-1.04) mg/dL Estimated GFR > 60 (>60) mL/min BUN/Creatinine Ratio 24.4 H (6-22) Glucose 127 H (80-110) mg/dL Lactate 1.8 (0.7-2.1) mmol/L Calcium 9.0 (8.4-10.2) mg/dL Total Bilirubin 1.0 (0.2-1.3) mg/dL AST 26 (14-36) IU/L ALT 44 H (<35) IU/L Alkaline Phosphatase 80 (38-126) U/L Troponin I < 0.012 (0.01-0.034) ng/mL NT-Pro-B Natriuret Pep 120 (<125) pg/mL Total Protein 7.1 (6.3-8.2) g/dL Albumin 3.9 (3.5-5.0) g/dL Globulin 3.2 (1.7-4.1) g/dL Albumin/Globulin Ratio 1.2 (1.0-2.8) SARS-CoV-2 (PCR) (Negative) Influenza A (RT-PCR) (NEGATIVE) Influenza B (RT-PCR) (NEGATIVE) RSV (PCR) (Negative) Imaging Data Chest x-ray: Radiologist's Impression: FINDINGS:? ? Surgical changes and devices:? Surgical clips left lower lung area, versus chest wall.? This could represent evidence of prior breast carcinoma surgery..? ? Lungs and pleura:? Lungs are clear but there is abnormal pleural thickening at the right lateral mid and lower hemithorax..? No pleural effusions or pneumothorax.? ? Mediastinum:? Mediastinal contours appear normal.? Heart size is normal.? ? Bones and chest wall:? No suspicious bony lesions.? Overlying soft tissues appear unremarkable.? ? IMPRESSION:? A band of right lateral pleural thickening is present through the mid and lower hemithorax, no definite pneumonia found, left-sided mediastinal or chest wall surgical clips potentially evidence of prior breast carcinoma surgery. ? ? Dictated by: Ousmane Corado M.D. on 10/25/2022 at 20:59 ?? CT scan - chest: Radiologist's Impression: FINDINGS:? Image quality:? Excellent.? ? Pulmonary arteries:? Pulmonary arteries are normal in size, and demonstrate no intraluminal filling defects to suggest central pulmonary embolism.? ? Lungs and pleura:? Lungs are clear.? No pleural effusions or pneumothorax.? Central and peripheral airways are patent.? ? Mediastinum:? Heart size is normal, without pericardial effusion.? No mediastinal or hilar adenopathy.? Thoracic aorta is normal in caliber and enhancement.? Eso phagus is normal in caliber, without hiatal hernia.? ? Bones and chest wall:? No suspicious bony lesions.? Ribs and thoracic spine appear free of acute trauma throughout, but there is mild distortion of the anterolateral right chest wall with a vertically oriented band of pleural thickening, chronic in appearance, with distortion of the underlying rib in this area.? This was also seen on chest alexandru in film earlier same day.? Thyroid gland appears normal where well seen..? No axillary or supraclavicular adenopathy.? ? Abdomen:? Visualized upper abdominal solid organs appear normal in the early ar terial phase of enhancement.? ? IMPRESSION:? No pulmonary embolus found.? Several surgical clips are present within the medial left breast tissue, presumably related to prior breast carcinoma surgery. ? Chronic appearing mild distortion of the right anterolateral pleural surface likely due to old trauma but potentially due to some form of congenital osseous variant.? No pneumonia found. ? ? Dictated by: Ousmane Corado M.D. on 10/25/2022 at 23:58 ? MDM Narrative Medical decision making narrative: 67-year-old woman with 2 weeks of upper respiratory complaints significantly worse over the last couple of days with moderate hypoxia. She was given nebulizers EN route for medics but has not been significantly wheezy here in the emergency department. Chest x-ray is nondiagnostic, white blood cell count is not significantly elevated, chemistries are unremarkable, serology is negative for COVID, influenza and RSV. Given the dramatic worsening of symptoms today possibility of pulmonary embolism, cardiac etiology and bacterial superinfection are all entertained. Initial troponin is unremarkable. EKG will be obtained. No clinical signs or symptoms of congestive heart failure. Will check a CT PE study and re-evaluate. 1am CT scan is unremarkable with no evidence of pulmonary embolism or pneumonia. No pneumothorax no pericardial effusion. At this time I do not have a life- threatening explanation for her chest pain. I suspect, given the cough that was present for 2 weeks and continued cough with unremarkable findings otherwise and nice response to home albuterol that she likely had respiratory syncytial virus and is now having persistent cough post viral etiology. Going to place her on steroids for 5 days and give her a prescription for her own albuterol along with instructions to follow-up with her primary care doctor late next week. Discharge Plan Departure Patient Disposition: Home Clinical Impression: Cough Qualifiers: Cough type: acute Qualified Code(s): R05.1 - Acute cough Instructions: DI for Respiratory Syncytial Virus -- Adults Activity Restrictions/Additional Instructions: Thank you for coming in today Your workup was quite reassuring. There is no evidence of acute viral infection and today you tested negative for influenza, RSV and COVID. Your CT scan does not suggest blood clots in your lungs, collapsed lungs, fluid collecting around your heart or pneumonia. There is no evidence of heart attack or congestive heart failure. Based on your presentation with upper respiratory symptoms for the last 2 weeks and now with persistent cough, I suspect that you likely had respiratory syncytial virus that has now resolved with the persistent reactive airway type cough that can be seen for 2-4 weeks after this type of viral infection. I am going to have you complete 5 days of prednisone, I have given you some Tessalon Perle cough pills and I have also given you a spacer with albuterol meter dose inhaler. Please use 2 puffs every 6-8 hours for cough. If you are noticing that you are getting worse, developing a fever, having chest pain or new symptoms you do need to return to the ER. Prescriptions were electronically transmitted to [facility] I am going to ask that you schedule an appointment with your primary care doctor sometime next week to follow-up on this cough. Prescriptions: New prednisone 20 mg tablet 40 mg PO DAILY Qty: 10 0RF benzonatate 200 mg capsule 200 mg PO BID-TID PRN (Reason: cough) Qty: 14 0RF No Action losartan 100 mg tablet 100 mg PO QPM aspirin 81 mg Tablet,Delayed Release (Dr/Ec) 81 mg PO DAILY Referrals: Carly Harper ARNP [Primary Care Provider] -
--- NOTE | 2022-10-25 23:25 | DI.CT.S_ITS ---
PROCEDURE: CT ANGIO CHEST PE PROTOCOL INDICATIONS: acute dypsnea TECHNIQUE: After the administration of intravenous contrast, 2 mm thick sections acquired from the pulmonary apices to the posterior costophrenic angles. 3-dimensional maximum intensity projection (MIP) coronal and sagittal reformats were then acquired through the thorax. For radiation dose reduction, the following was used: automated exposure control, adjustment of mA and/or kV according to patient size. COMPARISON: [facility], CR, XR CHEST 1V, 10/25/2022, 20:40. FINDINGS: Image quality: Excellent. Pulmonary arteries: Pulmonary arteries are normal in size, and demonstrate no intraluminal filling defects to suggest central pulmonary embolism. Lungs and pleura: Lungs are clear. No pleural effusions or pneumothorax. Central and peripheral airways are patent. Mediastinum: Heart size is normal, without pericardial effusion. No mediastinal or hilar adenopathy. Thoracic aorta is normal in caliber and enhancement. Esophagus is normal in caliber, without hiatal hernia. Bones and chest wall: No suspicious bony lesions. Ribs and thoracic spine appear free of acute trauma throughout, but there is mild distortion of the anterolateral right chest wall with a vertically oriented band of pleural thickening, chronic in appearance, with distortion of the underlying rib in this area. This was also seen on chest plain film earlier same day. Thyroid gland appears normal where well seen.. No axillary or supraclavicular adenopathy. Abdomen: Visualized upper abdominal solid organs appear normal in the early arterial phase of enhancement. IMPRESSION: No pulmonary embolus found. Several surgical clips are present within the medial left breast tissue, presumably related to prior breast carcinoma surgery. Chronic appearing mild distortion of the right anterolateral pleural surface likely due to old trauma but potentially due to some form of congenital osseous variant. No pneumonia found. Dictated by: Ousmane Corado M.D. on 10/25/2022 at 23:58 Approved by: Ousmane Corado M.D. on 10/26/2022 at 0:02
[2022-10-26] VITALS: PULSE 82; O2SAT 97
--- NOTE | 2022-10-26 | PC.NURSE ---
Sputum culture obtained and sent to lab
[2022-10-26 00:30] VITALS: PULSE 79; O2SAT 95
[2022-10-26] MEDS: BENZONATATE 100 MG CAPSULE PO (00:42)
[2022-10-26 01:00] VITALS: PULSE 79; O2SAT 94
--- NOTE | 2022-10-26 01:00 | PC.NURSE ---
Resting quietly in NAD - no needs voiced - PWD with respirations equal and unlabored bilaterally - no needs voiced - on RA at this time - states that she feels much better after the breathing treatments - decreased rate of breathing noted - no wheezing heard
[2022-10-26] MEDS: ALBUTEROL HFA PREPACK 1 BOX MISC (01:27)
[2022-10-26] MEDS: methylPREDNISolone 125 MG/2 ML VIAL IV (01:27)
[2022-10-26 01:30] VITALS: BP 120/86; PULSE 74; RESP 18; O2SAT 90
--- NOTE | 2022-10-26 02:10 | PC.NURSE ---
RT at bedside for MDI and spacer teaching
== END 2022-10-26 02:25 | disposition home or self-care (01) ==
PROVIDERS: Emergency Provider Emergency Medicine; PCP Nurse Practitioner Family
DX: R05.1 Acute cough (principal); R06.00 Dyspnea, unspecified; Z20.822 Contact with and (suspected) exposure to COVID-19
CPT/HCPCS: 0241U; 71045; 71275; 80053; 83605; 83880; 84484; 85025; 85610; 87070; 87205; 96374; 99284; J2930; Q9967

== ENCOUNTER 2023-01-26 17:37 | Inpatient (IN) | payer MEDICARE, OTHER, SELFPAY ==
[2023-01-26] VITALS (16 sets, daily range): BP systolic 133–197; BP diastolic 61–91; PULSE 68–82; RESP 22; TEMP 36.7; O2SAT 93–100; BMI 230.8
--- NOTE | 2023-01-26 08:49 | DI.MRI.S_ITS ---
P give to a thank you cava by MOUNA: MR HEAD/BRAIN WO CON INDICATIONS: TIA HTN urgency TECHNIQUE: Non-contrast axial T1 spin echo, axial T2 fast spin echo, sagittal and axial FLAIR, coronal T2 fast spin echo, axial gradient echo, axial diffusion and ADC through the brain. COMPARISON: None. FINDINGS: Image quality: Excellent. CSF spaces: Ventricles appear symmetric in size and shape. Basal cisterns are patent. No extra-axial fluid collections. Brain: No intracranial bleeds or mass effects. There is cerebral volume loss for age. There are periventricular and deep white matter chronic small vessel ischemic changes. Brainstem appears normal. There is an acute posterior inferior cerebellar artery distribution infarct on the left with associated restricted water diffusion in the inferior left cerebellum. There is an old left cerebellar lacunar infarction. There are small old right cerebellar lacunar infarctions.. No chronic ischemic insults. Normal intravascular flow voids are present. Skull and face: Calvarial bone marrow is normal in signal. Orbits are normal. Sinuses: Patchy left mastoid opacification. Sinuses and mastoids are otherwise clear. IMPRESSION: 1. 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 2. 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 Low for just affected help you Dictated by: Manjit Muñoz M.D. on 01/27/2023 at 8:52 Approved by: Manjit Muñoz M.D. on 01/27/2023 at 8:57
--- NOTE | 2023-01-26 17:57 | DI.CT.S_ITS ---
PROCEDURE: CT STROKE INDICATIONS: headache vomiting TECHNIQUE: Noncontrast 4.5 mm thick angled axial sections acquired from the foramen magnum to the vertex, with coronal reformats. For radiation dose reduction, the following was used: automated exposure control, adjustment of mA and/or kV according to patient size. COMPARISON: None. FINDINGS: Image quality: Excellent. CSF spaces: Basal cisterns are patent. No extra-axial fluid collections. The ventricles are symmetric in size and shape. Brain: No intracranial bleeds or masses. There is cerebral volume loss for age, with resultant ventricular and sulcal prominence. There are periventricular and deep white matter chronic small vessel ischemic changes. There is intracranial internal carotid artery atherosclerosis. Skull and face: Calvarium and visualized facial bones appear intact, without suspicious lesions. Sinuses: Visualized sinuses and mastoids are clear. IMPRESSION: Noncontrast head CT within normal limits, without acute hemorrhage or dmias CT findings of early stroke. Note: Case discussed by telephone with Dr. Narayanan at 5:35 p.m. [place] time on January 26, 2023. This study fulfills neurological imaging criteria for inclusion or exclusion of acute stroke therapies based on available published neurological guidelines. Dictated by: Scott Capone M.D. on 01/26/2023 at 17:34 Approved by: Scott Capone M.D. on 01/26/2023 at 17:36
--- NOTE | 2023-01-26 17:58 | DI.RAD.S_ITS ---
PROCEDURE: XR CHEST 1V INDICATIONS: cva TECHNIQUE: One view of the chest was acquired. COMPARISON: [facility], CT, CT STROKE, 01/26/2023, 18:26. [facility], CT, CT ANGIO CHEST PE PROTOCOL, 10/25/2022, 23:37. [facility], CR, XR CHEST 1V, 10/25/2022, 20:40. FINDINGS: Surgical changes and devices: There is postoperative change of the left breast. Lungs and pleura: On this semiupright portable chest examination, no large pneumothorax or large pleural effusions are seen. No focal infiltrates are seen. Mediastinum: Mediastinal contours appear normal. Heart size is normal. Atherosclerotic calcification of the aortic arch is noted. Bones and chest wall: No suspicious bony lesions. Age-appropriate bony degenerative changes are seen. Overlying soft tissues appear unremarkable. IMPRESSION: Clear lungs. Left breast postoperative change. Dictated by: Scott Capone M.D. on 01/26/2023 at 18:00 Approved by: Scott Capone M.D. on 01/26/2023 at 18:01
--- NOTE | 2023-01-26 18:04 | DI.CT.S_ITS ---
PROCEDURE: CT ANGIO HEAD AND NECK INDICATIONS: dizzy TECHNIQUE: Pre-contrast 4.5 mm thick sections acquired from the foramen magnum to the vertex. After the administration of intravenous contrast, 1 mm thick sections acquired from the aortic arch through the [place] of [place]. Post-contrast 4.5 mm thick sections then re-acquired from the foramen magnum to the vertex. 3-dimensional amgfagn-smlbeccvr-muozggruzj (MIP) and/or volume rendering reformats were acquired of the central intracranial vasculature and neck separately. For radiation dose reduction, the following was used: automated exposure control, adjustment of mA and/or kV according to patient size. COMPARISON: None. FINDINGS: Image quality: Excellent. BRAIN: CSF spaces: Ventricles are normal in size and shape. Basal cisterns are patent. No extra-axial fluid collections. Brain: No midline shift. No intracranial bleeds or masses. García-white matter interface appears intact. Skull and face: Calvarium and facial bones appear intact, without suspicious lesions. Orbits appear normal. Sinuses: Sinuses and mastoids are clear. HEAD CT ANGIOGRAPHY: Anterior circulation: Intracranial internal carotid arteries are normal in size and flow. The flow within the paired anterior cerebral arteries is normal and symmetric. The flow within the middle cerebral arteries is normal and symmetric. The anterior communicating artery is seen. No aneurysms are seen. Posterior circulation: Visualized portions of the vertebral arteries demonstrate normal caliber, and join to form a normal appearing basilar artery. Flow within the posterior cerebral arteries is normal and symmetric. No aneurysms are seen. NECK CT ANGIOGRAPHY: Carotid system: Moderate amount of atherosclerotic plaques are noted involving aortic arch. The great vessels demonstrate a conventional anatomy as they arise from the aortic arch. The origins of the common carotid arteries appear patent. The common carotid arteries demonstrate normal caliber and courses. [id number] amount of atherosclerotic calcifications involving distal right common carotid artery and origin of right internal carotid artery with less than 25 percent stenosis. The left internal carotid artery demonstrates normal caliber and course. Posterior circulation: The origins of the vertebral arteries both appear widely patent. The more superior extracranial portions of both vertebral arteries also demonstrate normal courses and calibers. They join to form a normal appearing basilar artery. Soft tissues: Visualized neck soft tissues demonstrate no suspicious abnormalities. Bones: No suspicious bony lesions. Visualized cervical spine appears normally aligned. IMPRESSION: 1. No CT evidence of acute intracranial abnormalities. No area of abnormal intracranial contrast enhancement. 2. No hemodynamically significant stenosis or aneurysm is seen in the intracranial circulation. 3. [id number]-[id number] atherosclerotic disease involving aortic arch with mild atherosclerotic disease involving origin of right internal carotid arteries with less than 25 percent stenosis. No hemodynamically significant stenosis is seen in bilateral neck arteries. No discrepancies from preliminary reading. Any quantitative measurements of stenosis were performed using NASCET criteria. Dictated by: Moreno Tamayo M.D. on 01/27/2023 at 8:07 Approved by: Moreno Tamayo M.D. on 01/27/2023 at 8:22
--- NOTE | 2023-01-26 18:08 | ED.NEUROSD ---
HPI - Neuro Symptoms/Deficit <Enma Narayanan DO - Last Filed: 01/30/23 06:58> General Chief Complaint: Neuro Symptoms/Deficit Stated Complaint: Left Arm Shaking/Can't Walk/Throwing Up Time Seen by Provider: 01/26/23 17:56 History of Present Illness HPI Narrative: Patient is a 67-year-old female history hypertension, breast cancer, post lumpectomy presenting today with sudden onset of dizziness vomiting mild headache. She reports that she was in her garden in her normal state of health until around 3:00 p.m.. She bent down to pick a bucket up box when suddenly she really she did not feel quite right. She does not really report a massive headache but is a little dizzy and had a couple episodes of vomiting. She realized that when she stood up she started walking may be leaning towards left she had some left arm shaking. She asked her for help into the house. Last known well is roughly 3:00 p.m. reports slurring of speech for about 1 hour now resolved. She says any chest pain or palpitations Related Data Home Medications Medication Instructions Recorded Confirmed amlodipine 10 mg tablet 10 mg PO BEDTIME 01/27/23 01/27/23 rosuvastatin 5 mg tablet 5 mg PO BEDTIME 01/27/23 01/27/23 Previous Rx's Medication Instructions Recorded aspirin 81 mg tablet,delayed 81 mg PO DAILY #30 tabs 01/27/23 release (Adult Low Dose Aspirin) Allergies Allergy/AdvReac Type Severity Reaction Status Date / Time nickel Allergy Unknown Verified 01/26/23 18:13 Review of Systems <DO Benny Carvajal Last Filed: 01/30/23 06:58> Review of Systems ROS Unobtainable: All systems reviewed & are unremarkable except as noted in HPI and below Patient History <DO Benny Carvajal Last Filed: 01/30/23 06:58> Medical History Anal cancer Breast cancer HTN (hypertension) Peripheral vascular disease Tobacco abuse Surgical History H/O: hysterectomy History of aorto-femoral bypass Hx of lumpectomy Family History (Updated 01/27/23 @ 01:42 by Malia Tinoco [facility]) Mother Hypertension Father Hypertension Sister No problems noted. Social History marital status: household members: spouse occupational status: previously employed Smoking Status: Current every day smoker alcohol intake: never substance use type: does not use Smoking Status: Current every day smoker Exam <Enma Narayanan DO - Last Filed: 01/30/23 06:58> Initial Vital Signs Initial Vital Signs: Vital Signs Temperature 98.0 F 01/26/23 17:45 Pulse Rate 69 01/26/23 17:45 Respiratory Rate 22 01/26/23 17:45 Blood Pressure 191/81 H 01/26/23 17:45 Pulse Oximetry 100 01/26/23 17:45 Oxygen Delivery Method Room Air 01/26/23 17:45 GENERAL: Alert slightly anxious 67-year-old female and in no acute distress. HEENT: Head atraumatic,EOMI, pupils reactive, no nystagmus face symmetric, moist mucous membranes CARDIOVASCULAR: Regular rate and rhythm without murmurs, rubs or gallops. RESPIRATORY: Breath sounds equal bilaterally, no wheezes rales or rhonchi. ABDOMEN: Soft, nontender. Normoactive bowel sounds all 4 quadrants. No guarding or rebound. EXTREMITIES: Normal range of motion, no clubbing or edema. Neurovascularly intact NEUROLOGICAL: Alert and oriented x4.Normal gait and speech. Cranial nerves II through XII grossly intact. Good [id number], good [id number], strength equal bilaterally, no dysarthria or aphasia, sensation in tact to soft touch bilaterally, no visual changes, no facial droop SKIN: Warm, dry, no laceration, no petechiae, no rashes or lesions. <Gaston Abrams DO - Last Filed: 01/27/23 02:48> Initial Vital Signs Initial Vital Signs: Vital Signs Temperature 98.0 F 01/26/23 17:45 Pulse Rate 69 01/26/23 17:45 Respiratory Rate 22 01/26/23 17:45 Blood Pressure 191/81 H 01/26/23 17:45 Pulse Oximetry 100 01/26/23 17:45 Oxygen Delivery Method Room Air 01/26/23 17:45 Scores <Enma Botnick, DO - Last Filed: 01/30/23 06:58> NIH Stroke Scale Level of Conciousness: Alert, keenly responsive Ask month/age: Answers both questions correctly. Open/close eyes, close hand: Performs both tasks correctly Best gaze horizontal: Normal Visual guerra: No visual loss Facial palsy: Normal symetrical movement Left arm drift: No drift for full 10 sec Right arm drift: No drift for full 10 sec Left leg drift: No drift for full 5 sec Right leg drift: No drift for full 5 sec Limb ataxia: Absent Sensory on face/arms/legs: Normal, no sensory loss Best language: No aphasia, normal Dysarthria: Normal Extinction or inattention: No abnormality Total NIH Stroke scale score: 0 <Gaston Abrams, DO - Last Filed: 01/27/23 02:48> NIH Stroke Scale Total NIH Stroke scale score: 0 Course <Enma Narayanan, DO - Last Filed: 01/30/23 06:58> Orders Ordered: Discontinued Medications Acetaminophen (Acetaminophen 325 Mg Tablet) 650 mg PO Q6H PRN PRN Reason: Fever/Mild Pain (1-3) Hydrocodone Bitart/Acetaminophen (Hydrocodone/Acet 5/325 Tablet) 1 tab PO Q4H PRN PRN Reason: Pain, Moderate (4-10 Al Hydrox/Mg Hydrox/Simethicone (Mag Hydrox/Alum/Simeth 30 Ml Udc) 30 ml PO Q6HR PRN PRN Reason: Dyspepsia Amlodipine Besylate (Amlodipine 5 Mg Tablet) 10 mg PO DAILY [facility] Aspirin (Aspirin 81 Mg Chew Tab) 324 mg PO NOW ONE Stop: 01/26/23 19:41 Last Admin: 01/26/23 20:08 Dose: 243 mg Documented By: GC Aspirin (Aspirin Ec 325 Mg Tablet) 325 mg PO DAILY [facility] Last Admin: 01/27/23 10:22 Dose: 325 mg Documented By: TOSHA Atorvastatin Calcium (Atorvastatin 20 Mg Tablet) 20 mg PO BEDTIME [facility] Last Admin: 01/26/23 22:10 Dose: 20 mg Documented By: GC Atorvastatin Calcium (Atorvastatin 20 Mg Tablet) 80 mg PO BEDTIME [facility] Atorvastatin Calcium (Atorvastatin 20 Mg Tablet) 80 mg PO BEDTIME [facility] Calcium Carbonate (Calcium Carbonate 500 Mg Tab) 1,000 mg PO Q4HR PRN PRN Reason: Dyspepsia Clopidogrel Bisulfate (Clopidogrel 75 Mg Tablet) 75 mg PO DAILY [facility] Last Admin: 01/27/23 10:22 Dose: 75 mg Documented By: TOSHA Clopidogrel Bisulfate (Clopidogrel 75 Mg Tablet) 75 mg PO DAILY [facility] Enoxaparin Sodium (Enoxaparin 40 Mg/0.4 Ml Syringe) 40 mg SUBCUT DAILY [facility] Last Admin: 01/27/23 10:22 Dose: 40 mg Documented By: TOSHA Sodium Chloride (Normal Saline 0.9%) 1,000 mls @ 150 mls/hr IV CONT [facility] Last Admin: 01/27/23 04:01 Dose: Not Given Documented By: VIDAL Losartan Potassium (Losartan 50 Mg Tablet) 100 mg PO QPM [facility] Naloxone HCl (Naloxone 0.4 Mg/Ml Vial) 0.2 mg IV Q2MIN PRN PRN Reason: Opiate Reversal Ondansetron HCl (Ondansetron 4 Mg/2 Ml Inj) 4 mg IV Q4HR PRN PRN Reason: Nausea And Vomiting Vital Signs Vital signs: Vital Signs - 8 hr 01/26/23 19:25 01/26/23 19:30 01/26/23 19:53 Pulse Rate 82 76 Blood Pressure 197/91 H Pulse Oximetry 95 96 01/26/23 19:53 01/26/23 20:30 01/26/23 21:00 Pulse Rate 76 79 74 Blood Pressure Pulse Oximetry 97 96 96 01/26/23 21:30 01/26/23 22:00 01/26/23 22:28 Pulse Rate 71 68 Blood Pressure 133/61 Pulse Oximetry 94 93 <Gaston Abrams, DO - Last Filed: 01/27/23 02:48> Orders Ordered: Discontinued Medications Acetaminophen (Acetaminophen 325 Mg Tablet) 650 mg PO Q6H PRN PRN Reason: Fever/Mild Pain (1-3) Hydrocodone Bitart/Acetaminophen (Hydrocodone/Acet 5/325 Tablet) 1 tab PO Q4H PRN PRN Reason: Pain, Moderate (4-10 Al Hydrox/Mg Hydrox/Simethicone (Mag Hydrox/Alum/Simeth 30 Ml Udc) 30 ml PO Q6HR PRN PRN Reason: Dyspepsia Amlodipine Besylate (Amlodipine 5 Mg Tablet) 10 mg PO DAILY [facility] Aspirin (Aspirin 81 Mg Chew Tab) 324 mg PO NOW ONE Stop: 01/26/23 19:41 Last Admin: 01/26/23 20:08 Dose: 243 mg Documented By: MIKE Aspirin (Aspirin Ec 325 Mg Tablet) 325 mg PO DAILY [facility] Last Admin: 01/27/23 10:22 Dose: 325 mg Documented By: TOSHA Atorvastatin Calcium (Atorvastatin 20 Mg Tablet) 20 mg PO BEDTIME [facility] Last Admin: 01/26/23 22:10 Dose: 20 mg Documented By: MIKE Atorvastatin Calcium (Atorvastatin 20 Mg Tablet) 80 mg PO BEDTIME [facility] Atorvastatin Calcium (Atorvastatin 20 Mg Tablet) 80 mg PO BEDTIME [facility] Calcium Carbonate (Calcium Carbonate 500 Mg Tab) 1,000 mg PO Q4HR PRN PRN Reason: Dyspepsia Clopidogrel Bisulfate (Clopidogrel 75 Mg Tablet) 75 mg PO DAILY [facility] Last Admin: 01/27/23 10:22 Dose: 75 mg Documented By: TOSHA Clopidogrel Bisulfate (Clopidogrel 75 Mg Tablet) 75 mg PO DAILY [facility] Enoxaparin Sodium (Enoxaparin 40 Mg/0.4 Ml Syringe) 40 mg SUBCUT DAILY [facility] Last Admin: 01/27/23 10:22 Dose: 40 mg Documented By: TOSHA Sodium Chloride (Normal Saline 0.9%) 1,000 mls @ 150 mls/hr IV CONT [facility] Last Admin: 01/27/23 04:01 Dose: Not Given Documented By: VIDAL Losartan Potassium (Losartan 50 Mg Tablet) 100 mg PO QPM [facility] Naloxone HCl (Naloxone 0.4 Mg/Ml Vial) 0.2 mg IV Q2MIN PRN PRN Reason: Opiate Reversal Ondansetron HCl (Ondansetron 4 Mg/2 Ml Inj) 4 mg IV Q4HR PRN PRN Reason: Nausea And Vomiting Vital Signs Vital signs: Vital Signs - 8 hr 01/26/23 19:25 01/26/23 19:30 01/26/23 19:53 Pulse Rate 82 76 Blood Pressure 197/91 H Pulse Oximetry 95 96 01/26/23 19:53 01/26/23 20:30 01/26/23 21:00 Pulse Rate 76 79 74 Blood Pressure Pulse Oximetry 97 96 96 01/26/23 21:30 01/26/23 22:00 01/26/23 22:28 Pulse Rate 71 68 Blood Pressure 133/61 Pulse Oximetry 94 93 MDM - Neuro Symptoms/Deficit <Enma Narayanan DO - Last Filed: 01/30/23 06:58> Lab Data 01/26/23 19:00 01/27/23 01:30 Labs: Lab Results 01/26/23 01/26/23 01/26/23 Range/Units 19:00 19:00 19:00 WBC 9.1 (4.5-11.0) X10^3/uL RBC 4.72 (4.0-5.2) X10^6/uL Hgb 15.3 (12.0-16.0) g/dL Hct 43.6 (36-46) % MCV 92.3 (80-100) fL MCH 32.5 (26-34) PG MCHC 35.2 (30-36) % RDW 14.1 (11.6-14.8) % Plt Count 155 (150-400) X10^3/uL Neut % (Auto) 71.4 (50-75) % Lymph % (Auto) 22.0 L (25-40) % [place] % (Auto) 5.0 (3-14) % Eos % (Auto) 1.0 L (2-4) % Baso % (Auto) 0.6 (0-2) % Neut # (Auto) 6500 (2907-4133) /uL Lymph # (Auto) 2000 (8291-9758) /uL [place] # (Auto) 500 (0-900) /uL Eos # (Auto) 100 (0-450) /uL Baso # (Auto) 100 (0-100) /uL PT 10.6 (10.1-12.7) SECONDS INR 0.9 (0.9-1.3) APTT 30 (26-36) SECONDS Sodium 138 (137-145) mmol/L Potassium 4.1 (3.4-5.1) mmol/L Chloride 105 (98-107) mmol/L Carbon Dioxide 26 (22-32) mmol/L BUN 23 H (7-17) mg/dL Creatinine 1.02 (0.52-1.04) mg/dL Estimated GFR > 60 (>60) mL/min BUN/Creatinine Ratio 22.5 H (6-22) Glucose 92 (80-110) mg/dL Hgb A1c (Ref Lab) (4.8-5.6) % Calcium 9.4 (8.4-10.2) mg/dL Magnesium (1.6-2.3) mg/dL Total Bilirubin 1.3 (0.2-1.3) mg/dL AST 39 H (14-36) IU/L ALT 48 H (<35) IU/L Alkaline Phosphatase 95 (38-126) U/L Total Creatine Kinase 56 (30-135) U/L CK-MB (CK-2) TNP CK-MB (CK-2) Rel Index TNP Troponin I < 0.012 (0.01-0.034) ng/mL NT-Pro-B Natriuret Pep (<125) pg/mL Total Protein 7.7 (6.3-8.2) g/dL Albumin 4.5 (3.5-5.0) g/dL Globulin 3.2 (1.7-4.1) g/dL Albumin/Globulin Ratio 1.4 (1.0-2.8) Triglycerides (35-150) mg/dL Cholesterol (140-199) mg/dL LDL Cholesterol, Calc (<100) mg/dL HDL Cholesterol (40-60) mg/dL Lipase 142 (23-300) U/L Ethyl Alcohol ( - 10) mg/dL SARS-CoV-2 (PCR) (Negative) 01/26/23 01/26/23 01/26/23 Range/Units 19:00 19:00 21:56 WBC (4.5-11.0) X10^3/uL RBC (4.0-5.2) X10^6/uL Hgb (12.0-16.0) g/dL Hct (36-46) % MCV (80-100) fL MCH (26-34) PG MCHC (30-36) % RDW (11.6-14.8) % Plt Count (150-400) X10^3/uL Neut % (Auto) (50-75) % Lymph % (Auto) (25-40) % [place] % (Auto) (3-14) % Eos % (Auto) (2-4) % Baso % (Auto) (0-2) % Neut # (Auto) (6809-0535) /uL Lymph # (Auto) (5982-6843) /uL [place] # (Auto) (0-900) /uL Eos # (Auto) (0-450) /uL Baso # (Auto) (0-100) /uL PT (10.1-12.7) SECONDS INR (0.9-1.3) APTT (26-36) SECONDS Sodium (137-145) mmol/L Potassium (3.4-5.1) mmol/L Chloride (98-107) mmol/L Carbon Dioxide (22-32) mmol/L BUN (7-17) mg/dL Creatinine (0.52-1.04) mg/dL Estimated GFR (>60) mL/min BUN/Creatinine Ratio (6-22) Glucose (80-110) mg/dL Hgb A1c (Ref Lab) 5.4 (4.8-5.6) % Calcium (8.4-10.2) mg/dL Magnesium 2.0 (1.6-2.3) mg/dL Total Bilirubin (0.2-1.3) mg/dL AST (14-36) IU/L ALT (<35) IU/L Alkaline Phosphatase (38-126) U/L Total Creatine Kinase (30-135) U/L CK-MB (CK-2) CK-MB (CK-2) Rel Index Troponin I (0.01-0.034) ng/mL NT-Pro-B Natriuret Pep 63 (<125) pg/mL Total Protein (6.3-8.2) g/dL Albumin (3.5-5.0) g/dL Globulin (1.7-4.1) g/dL Albumin/Globulin Ratio (1.0-2.8) Triglycerides 260 H (35-150) mg/dL Cholesterol 153 (140-199) mg/dL LDL Cholesterol, Calc 43 (<100) mg/dL HDL Cholesterol 58 (40-60) mg/dL Lipase (23-300) U/L Ethyl Alcohol < 10 ( - 10) mg/dL SARS-CoV-2 (PCR) Negative (Negative) Imaging Data CT scan - head: Radiologist's Impression: PROCEDURE:? CT STROKE ? INDICATIONS:? headache vomiting ? TECHNIQUE:? Noncontrast 4.5 mm thick angled axial sections acquired from the foramen magnum to the vertex, with coronal reformats.? For radiation dose reduction, the following was used:? automated exposure control, adjustment of mA and/or kV according to patient size.? ? COMPARISON:? None. ? FINDINGS:? Image quality:? Excellent.? ? CSF spaces:? Basal cisterns are patent.? No extra-axial fluid collections.? The ventricles are symmetric in size and shape.? ? Brain:? No intracranial bleeds or masses.? There is cerebral volume loss for age, with resultant ventricular and sulcal prominence.? There are periventricular and deep white matter chronic small vessel ischemic changes.? There is intracranial internal carotid artery atherosclerosis.? ? Skull and face:? Calvarium and visualized facial bones appear intact, without suspicious lesions.? ? Sinuses:? Visualized sinuses and mastoids are clear.? ? ? IMPRESSION:? Noncontrast head CT within normal limits, without acute hemorrhage or dimas CT findings of early stroke. ? Note: Case discussed by telephone with Dr. Narayanan at 5:35 p.m. [place] time on January 26, 2023.? ? This study fulfills neurological imaging criteria for inclusion or exclusion of acute stroke therapies based on available published neurological guidelines.? ? ? Dictated by: Scott Capone M.D. on 01/26/2023 at 17:34 ? ? Approved by: Scott Capone M.D. on 01/26/2023 at 17:36 ? ECG Data Interpretation: Normal sinus rhythm rate 54 DC interval 152 QRS 70 QTC [address] changes no T-wave inversions MDM Narrative Medical decision making narrative: Patient 67-year-old female history of hypertension history of breast cancer presenting today with headache difficulty ambulating left arm abnormality and slurring of speech, with vomiting initially thought to be possible intracranial hemorrhage however head CT was negative. She is a hard IV start unable to do a CT angio. Blood work is overall reassuring no evidence of leukocytosis KARIN electrolyte abnormalities Patient remains hypertensive. With slurring of speech and walking towards the left concern for possible TIA. Need to call in IV team for CT angio. I have spoken with Malia Tinoco who agrees for admission but would like to wait for the CT angio Signed out to Dr. Abrams <Gaston Abrams, DO - Last Filed: 01/27/23 02:48> Lab Data Labs: Lab Results 01/26/23 01/26/23 01/26/23 Range/Units 19:00 19:00 19:00 WBC 9.1 (4.5-11.0) X10^3/uL RBC 4.72 (4.0-5.2) X10^6/uL Hgb 15.3 (12.0-16.0) g/dL Hct 43.6 (36-46) % MCV 92.3 (80-100) fL MCH 32.5 (26-34) PG MCHC 35.2 (30-36) % RDW 14.1 (11.6-14.8) % Plt Count 155 (150-400) X10^3/uL Neut % (Auto) 71.4 (50-75) % Lymph % (Auto) 22.0 L (25-40) % [place] % (Auto) 5.0 (3-14) % Eos % (Auto) 1.0 L (2-4) % Baso % (Auto) 0.6 (0-2) % Neut # (Auto) 6500 (7212-9417) /uL Lymph # (Auto) 2000 (8877-1162) /uL [place] # (Auto) 500 (0-900) /uL Eos # (Auto) 100 (0-450) /uL Baso # (Auto) 100 (0-100) /uL PT 10.6 (10.1-12.7) SECONDS INR 0.9 (0.9-1.3) APTT 30 (26-36) SECONDS Sodium 138 (137-145) mmol/L Potassium 4.1 (3.4-5.1) mmol/L Chloride 105 (98-107) mmol/L Carbon Dioxide 26 (22-32) mmol/L BUN 23 H (7-17) mg/dL Creatinine 1.02 (0.52-1.04) mg/dL Estimated GFR > 60 (>60) mL/min BUN/Creatinine Ratio 22.5 H (6-22) Glucose 92 (80-110) mg/dL Hgb A1c (Ref Lab) (4.8-5.6) % Calcium 9.4 (8.4-10.2) mg/dL Magnesium (1.6-2.3) mg/dL Total Bilirubin 1.3 (0.2-1.3) mg/dL AST 39 H (14-36) IU/L ALT 48 H (<35) IU/L Alkaline Phosphatase 95 (38-126) U/L Total Creatine Kinase 56 (30-135) U/L CK-MB (CK-2) TNP CK-MB (CK-2) Rel Index TNP Troponin I < 0.012 (0.01-0.034) ng/mL NT-Pro-B Natriuret Pep (<125) pg/mL Total Protein 7.7 (6.3-8.2) g/dL Albumin 4.5 (3.5-5.0) g/dL Globulin 3.2 (1.7-4.1) g/dL Albumin/Globulin Ratio 1.4 (1.0-2.8) Triglycerides (35-150) mg/dL Cholesterol (140-199) mg/dL LDL Cholesterol, Calc (<100) mg/dL HDL Cholesterol (40-60) mg/dL Lipase 142 (23-300) U/L Ethyl Alcohol ( - 10) mg/dL SARS-CoV-2 (PCR) (Negative) 01/26/23 01/26/23 01/26/23 Range/Units 19:00 19:00 21:56 WBC (4.5-11.0) X10^3/uL RBC (4.0-5.2) X10^6/uL Hgb (12.0-16.0) g/dL Hct (36-46) % MCV (80-100) fL MCH (26-34) PG MCHC (30-36) % RDW (11.6-14.8) % Plt Count (150-400) X10^3/uL Neut % (Auto) (50-75) % Lymph % (Auto) (25-40) % [place] % (Auto) (3-14) % Eos % (Auto) (2-4) % Baso % (Auto) (0-2) % Neut # (Auto) (2197-9315) /uL Lymph # (Auto) (8813-9694) /uL [place] # (Auto) (0-900) /uL Eos # (Auto) (0-450) /uL Baso # (Auto) (0-100) /uL PT (10.1-12.7) SECONDS INR (0.9-1.3) APTT (26-36) SECONDS Sodium (137-145) mmol/L Potassium (3.4-5.1) mmol/L Chloride (98-107) mmol/L Carbon Dioxide (22-32) mmol/L BUN (7-17) mg/dL Creatinine (0.52-1.04) mg/dL Estimated GFR (>60) mL/min BUN/Creatinine Ratio (6-22) Glucose (80-110) mg/dL Hgb A1c (Ref Lab) 5.4 (4.8-5.6) % Calcium (8.4-10.2) mg/dL Magnesium 2.0 (1.6-2.3) mg/dL Total Bilirubin (0.2-1.3) mg/dL AST (14-36) IU/L ALT (<35) IU/L Alkaline Phosphatase (38-126) U/L Total Creatine Kinase (30-135) U/L CK-MB (CK-2) CK-MB (CK-2) Rel Index Troponin I (0.01-0.034) ng/mL NT-Pro-B Natriuret Pep 63 (<125) pg/mL Total Protein (6.3-8.2) g/dL Albumin (3.5-5.0) g/dL Globulin (1.7-4.1) g/dL Albumin/Globulin Ratio (1.0-2.8) Triglycerides 260 H (35-150) mg/dL Cholesterol 153 (140-199) mg/dL LDL Cholesterol, Calc 43 (<100) mg/dL HDL Cholesterol 58 (40-60) mg/dL Lipase (23-300) U/L Ethyl Alcohol < 10 ( - 10) mg/dL SARS-CoV-2 (PCR) Negative (Negative) MDM Narrative Medical decision making narrative: Patient 67-year-old female history of hypertension history of breast cancer presenting today with headache difficulty ambulating left arm abnormality and slurring of speech, with vomiting initially thought to be possible intracranial hemorrhage however head CT was negative. She is a hard IV start unable to do a CT angio. Blood work is overall reassuring no evidence of leukocytosis KARIN electrolyte abnormalities Patient remains hypertensive. With slurring of speech and walking towards the left concern for possible TIA. Need to call in IV team for CT angio. I have spoken with Malia Tinoco who agrees for admission but would like to wait for the CT angio Signed out to Dr. Jose Alberto Abrams: Received turned over. Reviewed patient's history and physical exam and workup up to this point. Dr. Narayanan has talked with PATRICIA Tinoco the [facility] hospital provider who has accept the patient for admission although the patient will stay here in the emergency department until a midline IV can be placed and has received her CTA. Low suspicion for large vessel occlusion. Low suspicion that patient we a candidate for code IR. Patient will be admitted for further evaluation and treatment. Discharge Plan Departure Patient Disposition: Admitted as Observation Clinical Impression: Transient cerebral ischemia Admit Date/Time: 01/27/23 00:30 Admit Provider: Malia Tinoco
[2023-01-26 19:10] LABS: Add Manual Diff / Slide Review NO; Basophils Absolute Auto 100 /uL (0-100); Basophils Percent Auto 0.6 % (0-2); Eosinophils Absolute Auto 100 /uL (0-450); Hematocrit 43.6 % (36-46); Hemoglobin 15.3 g/dL (12.0-16.0); INR 0.9 (0.9-1.3); Lymphocytes Absolute Auto 2000 /uL (1100-4500); Mean Corpuscular HGB Conc 35.2 % (30-36); Mean Corpuscular Hemoglobin 32.5 PG (26-34); Mean Corpuscular Volume 92.3 fL (80-100); Monocytes Absolute Auto 500 /uL (0-900); Neutrophils Absolute Auto 6500 /uL (1500-7000); Neutrophils Percent Auto 71.4 % (50-75); Platelet Count 155 X10^3/uL (150-400); Prothrombin Time 10.6 SECONDS (10.1-12.7); Red Blood Cell Count 4.72 X10^6/uL (4.0-5.2); Red Cell Distribution Width 14.1 % (11.6-14.8); White Blood Cell Count 9.1 X10^3/uL (4.5-11.0)
[2023-01-26 19:13] LABS: PTT Partial Thromboplastin Tim 30 SECONDS (26-36)
[2023-01-26 19:14] LABS: Alanine Aminotransferase 48 IU/L (<35); Albumin 4.5 g/dL (3.5-5.0); Albumin Globulin Ratio 1.4 (1.0-2.8); Alkaline Phosphatase 95 U/L (38-126); Aspartate Aminotransferase 39 IU/L (14-36); BUN Creatinine Ratio 22.5 (6-22); Bilirubin Total 1.3 mg/dL (0.2-1.3); Blood Urea Nitrogen 23 mg/dL (7-17); Calcium 9.4 mg/dL (8.4-10.2); Carbon Dioxide 26 mmol/L (22-32); Chloride 105 mmol/L (98-107); Creatine Kinase 56 U/L (30-135); Estimated Glomerular Filt Rate > 60 mL/min (>60); Globulin 3.2 g/dL (1.7-4.1); Glucose 92 mg/dL (80-110); HEMOLYSIS 28 (0-50); Lipase 142 U/L (23-300); Potassium 4.1 mmol/L (3.4-5.1); Sodium 138 mmol/L (137-145); Total Protein 7.7 g/dL (6.3-8.2)
[2023-01-26 19:26] LABS: Troponin I < 0.012 ng/mL (0.01-0.034)
--- NOTE | 2023-01-26 19:53 | PC.NURSE ---
pt evaluated by provider shortly after arrival to ED. IV attempted by RN, sent down to CT for noncontrast scan of brain since IV access could not be obtained. upon return, IV attempted with US guidance. placement seem successful, pt taken down to CT for scan with contrast, but roof service technician did not think IV was patent. assessed by RN and agreed that IV was infiltrated, redness at site, burning with flush, and hard lump palpated with 5cc flush. warm blanket applied and IV removed upon return to room. provider notified. IV team called for PICC placement. due to pt back and forth from DI and room, no BP obtained during this time. placed back on monitor upon return to room NO IV Left side due to lymph node removal from previous breast CA
--- NOTE | 2023-01-26 20:00 | DI.ECHO.S_ITS ---
[facility] +---------+ : : [address] : : : : [id number] : : : : Phone: [phone]+ Echocardiogram Report + + :Name: EVAN VILLANUEVA Study Date: 01/27/2023 Height: 63 in : :[facility] ReadingLocation: Weight: 143 lb : : Gender: Female BSA: 1.7 m2 : :: 1955 Age: 67 yrs BP: 149/84 mmHg: :Reason For Study: TIA, HTN : :Ordering Physician: MANUEL, : :NIALL Performed By: Elsy Barajas : :Referring: NIALL JACKSON : + + Interpretation Summary The ejection fraction is estimated to be 55-60%. Diastolic parameters suggest probable normal left ventricular diastolic function and normal filling pressures. The right ventricle is normal in size and function. The right ventricular systolic pressure is estimated to be at least 29 mmHg based on an estimated right atrial pressure of 3 mm Hg. Injection of contrast documented no interatrial shunt. No significant valvular abnormality. Procedure: A two-dimensional transthoracic echocardiogram with color flow and Doppler was performed. The study quality was technically adequate. There is no prior echocardiogram noted for this patient. The patient was in sinus rhythm with heart rates between 63-66 bpm during the exam. Left Ventricle: The left ventricle is normal in size and wall thickness. The ejection fraction is estimated to be 55-60%. There are no obvious focal wall motion abnormalities noted but poor endocardial definition reduces the sensitivity for the detection of such. Diastolic parameters suggest probable normal left ventricular diastolic function and normal filling pressures. Right Ventricle: The right ventricle is normal in size and function. The right ventricular systolic function is normal. Atria: The left atrial size is normal. Right atrial size is normal. There is no Doppler evidence for an interatrial shunt. Injection of contrast documented no interatrial shunt. Mitral Valve: There is moderate mitral annular calcification. The mitral valve leaflets appear moderately thickened, but open well. The mitral valve mean gradient is 3.7 mmHg. There is trace mitral regurgitation. Aortic Valve: The aortic valve is trileaflet. The aortic valve opens well. There is no aortic valve stenosis. No aortic regurgitation is present. Tricuspid Valve: The tricuspid valve is normal in structure and function. There is trace tricuspid regurgitation. The right ventricular systolic pressure is estimated to be at least 29 mmHg based on an estimated right atrial pressure of 3 mm Hg. Pulmonic Valve: The pulmonic valve leaflets are thin and pliable; valve motion is normal. There is no pulmonic valvular regurgitation. Great Vessels: The aortic root is normal size. The ascending aorta could not be visualized. The IVC is of normal diameter and collapses greater than 50% with a sniff. This suggests a low right atrial pressure of 3 mm Hg. Pericardium/ Pleura There is no pericardial effusion. There is no pleural effusion. MMode/2D Measurements & Calculations LVIDd: 5.0 cm LVOT diam: 2.0 cm LVIDs: 3.6 cm Ao root diam: 2.8 cm FS: 27.6 % IVSd: 0.77 cm LVPWd: 0.80 cm LV brown. diameter/BSA (cm/m^2): 3.0 LV sys. diameter/BSA (cm/m^2): 2.2 LA A2 area: 19.4 cm2 RA long axis: 4.3 cm LA A4 area: 16.7 cm2 RA area: 11.8 cm2 LA length (vol): 5.0 cm RA vol: 27.5 ml LA vol: 54.6 ml RA : 16.4 ml/m2 LA vol index: 32.5 ml/m2 IVC diam: 1.2 cm RVD1 (basal): 3.0 cm RVD2 (mid): 2.9 cm TAPSE: 1.6 cm Doppler Measurements & Calculations Ao V2 max: 135.1 cm/sec LVOT Max Chris: 107.8 cm/sec Ao V2 mean: 82.4 cm/sec LV V1 max P.6 mmHg Ao max P.3 mmHg LV V1 VTI: 23.8 cm Ao mean P.1 mmHg JOSE(I,D): 2.7 cm2 Ao V2 VTI: 26.3 cm JOSE(V,D): 2.4 cm2 sev ratio: 0.91 JOSE indexed to BSA (cm^2/m^2): 1.6 MV E max chris: 95.5 cm/sec TR max chris: 256.8 cm/sec MV A max chris: 121.5 cm/sec TR max P.4 mmHg MV E/A: 0.79 PA V2 max: 105.6 cm/sec Med Peak E' Chris: 8.1 cm/sec PA V2 mean: 73.8 cm/sec E/E' med: 11.8 PA mean P.5 mmHg Lat Peak E' Chris: 7.8 cm/sec PA pr(Accel): 39.6 mmHg E/E' lat: 12.2 E/e' average: 12.0 MV dec time: 0.40 sec MVA(VTI): 1.7 cm2 MV V2 mean: 89.6 cm/sec SV(LVOT): 71.2 ml MV mean P.6 mmHg MV V2 VTI: 42.9 cm Reading Physician:MEENA
[2023-01-26] MEDS: ASPIRIN 81 MG CHEW TAB 324 MG PO (20:08)
--- NOTE | 2023-01-26 20:08 | P.HP_ITS ---
History of Present Illness History of Present Illness Date Patient Seen: 01/26/23 Time Patient Seen: 20:09 Chief complaint: Left Arm Shaking/Can't Walk/Throwing Up Narrative: Maryjane Frost is a 67-year-old female history hypertension, HLD, breast CA, anal CA, tobacco abuse, PVD with left femoral stent x2 presenting today with sudden onset of dizziness vomiting mild headache, left arm shaking and slurred speech (1 hr per spouse), last known normal 3:00 p.m. patient reports no other associated symptoms, no previous event like this prior, and symptoms had resolv ed by arrival in ED. patient notes a sister had a heart attack and stroke - at the age of 62. At the time of admit patient is resting comfortably in the ED symptoms have not returned, she is stable and in no distress. On admit patient denies chest pain, shortness in breath, headache, changes in vision, difficulty swallowing, speech impairment, weakness, numbness, tingling, difficulty with ambulation, recent falls, head injury, LOC, fever, body aches, chills, cough, recent exposure to illness, abdominal pain, nausea, vomiting, urinary incontinence/retention, dysuria, frequency, urgency, hematuria, bowel changes, constipation, incontinence, melena, rashes, recent changes to medication, illness, injury, or trauma. Patient initially was hypertensive in ED BP 191/81, 197/91, 186/88. At the time of admit temp 98?, BP 133/61, HR 68, RR 22, O2 saturation 93% on room air. Heart score: 3, CBC unremarkable patient does have a BUN of 23, AST 39 ALT 48, all other laboratory findings are negative, troponin negative, chest x-ray negative, head CT negative. NIH score: 0 patient admitted for TIA/hypertensive urgency. Patient History Medical History Anal cancer Breast cancer HTN (hypertension) Peripheral vascular disease Tobacco abuse Surgical History H/O: hysterectomy History of aorto-femoral bypass Hx of lumpectomy Family & Social History Family History Mother Hypertension Father Hypertension Sister No problems noted. Social History: household members spouse Safety & Behavioral: Feels Safe in Current Yes Environment Been Physically Hurt or No Threatened By a Person Tobacco & Substance use: Smoking Status Current every day smoker alcohol intake never alcohol intake frequency 0-2 drinks per day Substance Use Type does not use Meds Home Medications and Allergies Home Medications Medication Instructions Recorded Confirmed Type aspirin 81 mg tablet,delayed 81 mg PO DAILY 10/08/19 08/22/20 History release losartan 100 mg tablet 100 mg PO QPM 10/08/19 08/22/20 History benzonatate 200 mg capsule 200 mg PO BID-TID PRN cough #14 10/26/22 Rx caps prednisone 20 mg tablet 40 mg PO DAILY #10 tabs 10/26/22 Rx Allergies Allergy/AdvReac Type Severity Reaction Status Date / Time nickel Allergy Unknown Verified 01/26/23 18:13 Review of Systems Review of Systems Narrative: All 12 point systems reviewed with the patient and are negative except otherwise documented. Exam Vital Signs (past 8 hours): - 01/26/23 17:45 01/26/23 17:50 01/26/23 18:00 Temperature 98.0 F Pulse Rate 69 69 72 Respiratory Rate 22 Blood Pressure 191/81 H Pulse Oximetry 100 100 99 Oxygen Delivery Method Room Air 01/26/23 18:01 01/26/23 18:01 01/26/23 19:25 Temperature Pulse Rate 72 82 Respiratory Rate Blood Pressure 186/78 H Pulse Oximetry 99 95 Oxygen Delivery Method 01/26/23 19:30 Temperature Pulse Rate 76 Respiratory Rate Blood Pressure Pulse Oximetry 96 Oxygen Delivery Method Oxygen Delivery Method Room Air Narrative Exam Narrative: General: Patient is a well-developed, well-nourished in no distress at this time. HEENT: Normocephalic, atraumatic, extraocular muscles intact, oral pharynx is clear and mucous membranes are moist. Neck is supple and symmetric, trachea is midline, no adenopathy, no thyroid enlargement, nontender, no masses palpated. Negative for JVD Chest: Normal AP diameter and contour without kyphoscoliosis, no nasal flaring, retractions, or tachypneic labored Lungs: Auscultation of all lung guerra are clear without adventitious sounds, wheezes, rhonchi, or rales. Cardio: S1 & S2 with regular rate and rhythm without murmur, rubs, or gallops, no carotid bruit, no cardiac pulsations present. Abdomen: Soft nontender, negative for organomegaly, or masses. Bowel sounds are present in all 4 quadrants without guarding or rebound, no CVA tenderness. Musculoskeletal: Muscle strength and tone are equal within normal limits, no deformity, crepitus, effusions, cyanosis, clubbing or edema present. Full range of motion intact radial and pedal pulses are normal. Skin: Warm dry and intact without rashes, ulcerations or petechiae. Neuro: Alert and orientated x3, strength is +5/5 in all extremities, sensation to touch intact, no gross deficits noted of cranial nerves. NIH 0 Psych: Patient has a well-kept appearance, appropriate affect, mental status attitude thought context and judgment are appropriate for age. Objective Labs 01/26/23 19:00 01/26/23 19:00 Labs: Laboratory Results - last 24 hr 01/26/23 01/26/23 01/26/23 19:00 19:00 19:00 WBC 9.1 RBC 4.72 Hgb 15.3 Hct 43.6 MCV 92.3 MCH 32.5 MCHC 35.2 RDW 14.1 Plt Count 155 Neut % (Auto) 71.4 Lymph % (Auto) 22.0 L [place] % (Auto) 5.0 Eos % (Auto) 1.0 L Baso % (Auto) 0.6 Neut # (Auto) 6500 Lymph # (Auto) 2000 [place] # (Auto) 500 Eos # (Auto) 100 Baso # (Auto) 100 PT 10.6 INR 0.9 APTT 30 Sodium 138 Potassium 4.1 Chloride 105 Carbon Dioxide 26 BUN 23 H Creatinine 1.02 Estimated GFR > 60 BUN/Creatinine Ratio 22.5 H Glucose 92 Calcium 9.4 Total Bilirubin 1.3 AST 39 H ALT 48 H Alkaline Phosphatase 95 Total Creatine Kinase 56 CK-MB (CK-2) TNP CK-MB (CK-2) Rel Index TNP Troponin I < 0.012 Total Protein 7.7 Albumin 4.5 Globulin 3.2 Albumin/Globulin Ratio 1.4 Lipase 142 Assessment & Plan Assessment & Plan narrative: Maryjane Frost is a 67-year-old female history hypertension, HLD, breast CA, anal CA, tobacco abuse, PVD with stent x2 admitted for TIA, rule out stroke, with hypertensive urgency. 1. TIA, acute, present on admission-resolved -dizziness vomiting mild headache, left arm shaking and slurred speech (1 hr per spouse), last known normal 3:00 p.m. -patient admitted under TIA/stroke protocol -Plavix, ASA, Lipitor, -ordered ETOH, troponin, lipid, hepatitis panel, A1c, BNP -MRI tomorrow -head CT negative -negative bedside swallow 2. Hypertensive urgency, acute in the setting of essential hypertension, acute on chronic, present on admission -ED BP 191/81, 197/91, 186/88. At the time of admit temp 98?, admit BP 133/61 -heart score: 3 -last echo 03/07/2022 EF 55-60%-recommend outpatient follow-up with Cardiology for echo and stress test -permissive hypertension -continue amlodipine 3. Hyperlipidemia related to peripheral vascular disease, chronic, present on admission -substitute Lipitor for rosuvastatin -lipid panel ordered 4. Tobacco abuse, acute on chronic, present on admission -discussed the risks related to hyperlipidemia, PVD, TIA and stroke, [place] -counseling provided regarding tobacco cessation Code status: Full Surrogate decision maker: Spouse Pravin GUERRERO PCR: Negative DVT/VTE prophylaxis: Lovenox and SCDs Disposition: Patient admitted for observation expected length of stay less than 2 midnights. I have utilized all available immediate resources to obtain, update, or review the patient's current medications. I confirmed that the patient's advanced care plan is present, Code status is documented and/or surrogate decision maker is listed in the patient's medical record. I have personally reviewed patient's chart notes from PCP, specialists, diagnostic imaging, and laboratory results.
[2023-01-26 20:39] LABS: Cholesterol 153 mg/dL (140-199); Ethanol (ETOH) < 10 mg/dL; HDL Cholesterol 58 mg/dL (40-60); LDL Cholesterol Calculated 43 mg/dL (<100); Triglycerides 260 mg/dL (35-150)
[2023-01-26 20:49] LABS: NT-proBNP (BNP-Adult 18+) 63 pg/mL (<125)
[2023-01-26] MEDS: ATORVASTATIN 20 MG TABLET PO (22:10)
[2023-01-26 23:02] LABS: COVID19 - ADMIT (NP swab/PCR) Negative (Negative)
[2023-01-27] VITALS (12 sets, daily range): BP systolic 132–149; BP diastolic 61–86; PULSE 64–79; RESP 17–18; TEMP 36.2–36.4; O2SAT 92–98; BMI 230.8; BMI 25.4
[2023-01-27 01:52] LABS: BUN Creatinine Ratio 22.7 (6-22); Blood Urea Nitrogen 22 mg/dL (7-17); Calcium 9.1 mg/dL (8.4-10.2); Carbon Dioxide 30 mmol/L (22-32); Chloride 105 mmol/L (98-107); Estimated Glomerular Filt Rate > 60 mL/min (>60); Glucose 123 mg/dL (80-110); HEMOLYSIS 16 (0-50); Potassium 3.9 mmol/L (3.4-5.1); Sodium 141 mmol/L (137-145)
[2023-01-27 02:04] LABS: Troponin I < 0.012 ng/mL (0.01-0.034)
--- NOTE | 2023-01-27 09:38 | PT.IIE ---
Addendum entered and electronically signed by Marzena Khan, PT 01/27/23 10:47: VS post-mobility were BP 169/93 HR 69. Original Note: Surgical History (Last Reviewed 01/27/23 @ 01:41 by Malia Tinoco [facility]) H/O: hysterectomy History of aorto-femoral bypass Hx of lumpectomy Medical History (Last Reviewed 01/27/23 @ 01:41 by Malia Tinoco [facility]) Anal cancer Breast cancer HTN (hypertension) Peripheral vascular disease Tobacco abuse Physical Therapy Inpatient Evaluation/Re-Eval M1 PT/OT-IP Prior Functional Status Start: 01/27/23 08:48 Freq: NEEDED Status: Active Protocol: Document 01/27/23 09:38 AW (Rec: 01/27/23 09:41 AW [id number]) Medical Review Prior Functional Status Medical History Reviewed Yes Communication WNL. Pt is an effective verbal communicator. Mobility and Gait Independent. Denies history of falls. Activities of Daily Living and IADL's Independent with ADL's. Pt drives and manages her own medications. Social History Household Members spouse Living Arrangements House Number of Floors (Floors) Two Floors Number of Stairs To Enter/Railing? Level entrance. 13 steps up to sewing room with no rails but jacinto on both sides. 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 Home Environment High Toilet,Walk in Shower Home Equipment Front Wheel Walker,Four Wheel Walker,Straight Cane,Grab Bars Near Toilet,Grab Bars In Shower Additional Social History Comment Pt lives with her spouse, Pravin . M2 PT-IP Current Condition Start: 01/27/23 08:48 Freq: NEEDED Status: Active Protocol: Document 01/27/23 09:38 AW (Rec: 01/27/23 10:46 AW [id number]) Physical Therapy Current Condition Current Condition Evaluation Date 01/27/23 Treatment Diagnosis acute L cerebellar CVA; impaired coordination LUE Onset Date 01/26/23 M3 PT-IP Subjective Start: 01/27/23 08:48 Freq: NEEDED Status: Active Protocol: Document 01/27/23 09:38 AW (Rec: 01/27/23 10:46 AW [id number]) Subjective Physical Therapy Visit Type Type Initial Evaluation Visit Start Time 09:22 Visit Stop Time 09:40 Total Visit Minutes 18 Notes Pt's spouse was present during neuro and mobility assessment . Physical Therapy Visit Comments Patient Comments Pt is willing to participate with PT. States she believes all of her symptoms have resolved. Patient Goals Pt hopes to return home soon to get some rest. Therapy Pain Assessment Pain When Pain Assessed During Mobility Pain Present Pain Present Denied Pain M4 PT-IP Mobility and Gait Start: 01/27/23 08:48 Freq: NEEDED Status: Active Protocol: Document 01/27/23 09:38 AW (Rec: 01/27/23 10:46 AW [id number]) PT-Bed Mobility Assessment Rolling Level of Assist Independent Supine to Sit Supine to Sit Independent Sit to Supine Sit to Supine Independent Scooting Scooting to Edge of Bed Independent PT-Transfer Assessment Sit to and From Stand Sit to and from Stand Independent Equipment Transfer Assistive Device None Orthotic/Prosthetic Devices or Brace: No Transfers Transfer Destination Bed,Chair Transfer Technique Stand Step Pivot Transfer Ability Level of Assist Independent Comments Mobility Comments Pt was found resting in bed and consented to PT session. BP was 152/82 HR 67. She demonstrated all transfers and gait without assistive device at independent level. She completed Dynamic Gait Index with score of 23/24 (single point deducted for stairs). Gait Assessment Gait Gait Assistance Required: Independent Distance (Feet) 300 Assistive Devices Assistive Device None Gait Deviations General Gait Pattern Within Normal Limits Comments Gait Comments No significant gait deviations or overt LOB. DGI score 23/24 . Stair Climbing Assessment Evaluation Level of Assist On Stairs Independent Devices Stair Climbing Assistive Devices Right Railing Technique/Endurance Stair Climbing Direction Ascend and Descend Stair Climbing Technique Step Over Step Number of Steps Climbed 3 Query Text: Stair Climbing Set # Repetitions (reps) 3 Comments Stair Climbing Comments One instance of left foot not clearing completely on ascent but pt had good balance reaction and needed no assist. PT-Balance Assessment Sitting Balance and Reactions Static Sitting Balance Ability Normal Dynamic Sitting Balance Ability Normal Standing Balance and Reactions Static Standing Balance Ability Normal Dynamic Standing Balance Ability Normal Balance Tests Romberg able to hold 10 sec with EC Tandem Standing able to get into position but unable to walk >3 steps Functional Assessments Functional Tests Dynamic Gait Index 23/24 M5 PT-IP Objective Assessments Start: 01/27/23 08:48 Freq: NEEDED Status: Active Protocol: Document 01/27/23 09:38 AW (Rec: 01/27/23 09:43 AW [id number]) Orientation Orientation/Cognition Level of Alertness Alert Orientation Name,Day of Week,Place, Situation Language Function Ability No Deficits Noted Safety Awareness Understands Safety Issues Memory Description No Deficits Noted Comments Pt able to recall three words (apple, table, azalea) after five minutes. Gross Range of Motion Upper Extremity ROM Assessment Within Functional Limits Lower Extremity ROM Assessment Within Functional Limits Strength Upper Extremity Strength Assessment Within Functional Limits Lower Extremity Strength Assessment Within Functional Limits Comments Strength Comments No unilateral deficit was appreciated. Coordination Assessment Assessment Finger to Nose Test Minimal Impairment Pronation/Supination Test Normal Performance Foot Tapping Test Normal Performance Heel on Rivera Test Normal Performance Coordination Comments Very slight impairment with LUE on initial finger to nose testing (eyes open) but improved with repetition. Sensation Assessment Sensation Gross Sensation WNL Muscle Tone Muscle Tone WNL Yes Other Assessments Other Other Assessments Ocular motor and vestibular screens WNL. Cranial nerves grossly normal. M6 PT-IP Treatment Start: 01/27/23 08:48 Freq: NEEDED Status: Active Protocol: Document 01/27/23 09:38 AW (Rec: 01/27/23 09:43 AW [id number]) Physical Therapy Treatment Education Education Provided Safety Other Treatments Other Treatment Performed Educated pt and her spouse on signs and symptoms of CVA and need for immediate treatment if noted. M7 PT-IP Assessment and Plan Start: 01/27/23 08:48 Freq: NEEDED Status: Active Protocol: Document 01/27/23 09:38 AW (Rec: 01/27/23 10:46 AW [id number]) PT Summary Assessment and Plan Potential Rehabilitation Potential Excellent Status of Condition at Evaluation Evolving Summary Impairments Coordination Assessment Summary Maryjane is a 67 yo woman seen for PT evaluation per stroke protocol. She arrived to ED with complaints of resolved slurring of speech, dizziness, vomiting, and LUE weakness/ shakiness. 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 Pt lives with her spouse in a two level home with level entrance. CLOF: Pt is mobilizing well with no significant gait deviations or balance impairments. She scored 23/24 on Dynamic Gait Index which is consistent with her healthy age-matched peers (Alexeck et al 2008). She does present with signs of dysdiadochokinesia and impaired LUE coordination. Otherwise, her neuro screen is WNL. No barriers to discharge home are apprecaited. No further acute PT needs are identified. Pt would likely benefit from outpatient occupational therapy. Frequency of Treatment Frequency Of Treatment Discharge Recommendations To Nursing Amount of Assist Needed Independent Discharge Recommendations PT Discharge Recommendations Home Other Discharge Recommendations OP OT Transportation Needs at Discharge Private Vehicle
[2023-01-27] MEDS: CLOPIDOGREL 75 MG TABLET PO (10:22)
[2023-01-27] MEDS: ENOXAPARIN 40 MG/0.4 ML SYRINGE SUBCUT (10:22)
[2023-01-27] MEDS: ASPIRIN EC 325 MG TABLET PO (10:22)
--- NOTE | 2023-01-27 10:52 | OT.IP.EVAL ---
Past Medical History (Last Reviewed 01/27/23 @ 01:41 by Malia Tinoco [facility]) Anal cancer Breast cancer HTN (hypertension) Peripheral vascular disease Tobacco abuse Surgical History (Last Reviewed 01/27/23 @ 01:41 by Malia Tinoco [facility]) H/O: hysterectomy History of aorto-femoral bypass Hx of lumpectomy Occupational Therapy Inpatient Evaluation/Re-Eval M1 PT/OT-IP Prior Functional Status Start: 01/27/23 08:48 Freq: NEEDED Status: Active Protocol: Document 01/27/23 09:38 AW (Rec: 01/27/23 09:41 AW [id number]) Medical Review Prior Functional Status Medical History Reviewed Yes Communication WNL. Pt is an effective verbal communicator. Mobility and Gait Independent. Denies history of falls. Activities of Daily Living and IADL's Independent with ADL's. Pt drives and manages her own medications. Social History Household Members spouse Living Arrangements House Number of Floors (Floors) Two Floors Number of Stairs To Enter/Railing? Level entrance. 13 steps up to sewing room with no rails but jacinto on both sides. 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 Home Environment High Toilet,Walk in Shower Home Equipment Front Wheel Walker,Four Wheel Walker,Straight Cane,Grab Bars Near Toilet,Grab Bars In Shower Additional Social History Comment Pt lives with her spouse, Pravin . M1 PT/OT-IP Prior Functional Status Start: 01/27/23 12:26 Freq: NEEDED Status: Active Protocol: Document 01/27/23 10:20 [facility] (Rec: 01/27/23 13:13 [facility] [id number]) Medical Review Prior Functional Status Medical History Reviewed Yes Communication WNL. Pt is an effective verbal communicator. Mobility and Gait Independent. Denies history of falls. Activities of Daily Living and IADL's Independent with ADL's. Pt drives and manages her own medications. Social History Household Members spouse Living Arrangements House Number of Floors (Floors) Two Floors Number of Stairs To Enter/Railing? Level entrance. 13 steps up to sewing room with no rails but jacinto on both sides. 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 Home Environment High Toilet,Walk in Shower Home Equipment Front Wheel Walker,Four Wheel Walker,Straight Cane,Grab Bars Near Toilet,Grab Bars In Shower Additional Social History Comment Pt lives with her spouse, Pravin . 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 Patient/Caregiver Goals TO go home. OT Pain Assessment Pain When Pain Assessed At Rest Pain Present Pain Present Denied Pain M4 OT- IP ADL's Start: 01/27/23 12:26 Freq: Status: Active Protocol: Document 01/27/23 10:20 [facility] (Rec: 01/27/23 13:13 [facility] [id number]) OT [id number] Comments OT Self-Feeding Comments Not at meal time. OT ADL-Grooming General Evaluation Grooming Ability Independent Comments OT Grooming Comments Increased time for set-up as having difficulty opening the tooth brush package. OT ADL-Oral Care General Eval Oral Care Ability Independent OT ADL-Dressing General Eval Lower Body Dressing Ability Standby Assistance Comments OT Dressing Comments Pt able to marlee/doff her socks while sitting on the edge of the bed. OT ADL-Toileting Comments OT Toileting Comments Pt states has already been using the bathroom on her own in the room. OT ADL-Bathing Comments OT Bathing Comments Not performed. M5 OT- IP IADL's Start: 01/27/23 12:26 Freq: Status: Active Protocol: Document 01/27/23 10:20 [facility] (Rec: 01/27/23 13:13 [facility] [id number]) OT-Instrumental Activities of Daily Living Deficits IADL Deficits Identified Deficits Home Safety Awareness Awareness of Need for Assistance at Home Decreased Awareness Ability to Problem Solve Emergency Able to Problem Solve Situations Home Safety Comments Pt is a bit impulsive and easily distracted at times. Pt 's states she is this way prior. Medication Management Medication Management Comments It will benefit pt to have her provide supervision for her needs at this time. Money Management Money Management Comments It will benefit pt to have her provide supervision for her needs at this time. Meal Preparation Meal Preparation Comments It will benefit pt to have her provide supervision for her needs at this time. Product Safety Tester Product Safety Tester Comments It will benefit pt to have her provide supervision for her needs at this time. Driving Driving Concerns Identified Regarding Safety M6 OT- IP Functional Cognition Start: 01/27/23 12:26 Freq: Status: Active Protocol: Document 01/27/23 10:20 [facility] (Rec: 01/27/23 13:13 [facility] [id number]) Cognitive Factors Limiting Selfcare Function Cognitive Ability Level of Alertness Alert Patient Orientation Name,Place Attention Span Ability Capable of Focused Attention, Capable of Sustained Attention Ability to Follow Commands Able to Follow Multi-Step Commands Safety Awareness Underestimates Need for Assistance Cognitive Comments Cognitive Assessment Comments Pt is a bit impulsive and needing cues to slow down and take her time. Pt scored 109 seconds on [place] Part B which implies under 20% for her age group. Her score implies MOD deficits for speed of processing, visual attention, task switching, executive functioning, and mental flexibility. Pt is aware that she will not be driving at this time. Pt's states lately she has been highly distracted while driving and agrees that pt not to drive at this time. OT- Vision and Hearing OT- Hearing Assessment OT- Hearing Assessment Hearing Impaired,Use of Hearing Aids OT- Vision Assessment Visual Acuity Glasses For Reading Visual Attentiveness WFL Occular Pursuits WFL Visual Convergence WFL Visual Yip WFL Diplopia Absent M7 OT- IP Mobility and Balance Start: 01/27/23 12:26 Freq: Status: Active Protocol: Document 01/27/23 10:20 [facility] (Rec: 01/27/23 13:13 [facility] [id number]) OT- Bed Mobility Assessment Supine to Sit Supine to Sit Assist Independent Sit to Supine Sit to Supine Assist Independent Scooting Scooting to Edge of Bed Independent OT-Transfer Assessment Sit to and From Stand Sit to and from Stand Independent Transfers Transfer Ability Independent Technique Transfer Destination Bed Transfer Technique Stand Step Pivot Devices Transfer Assistive Devices None Comments Mobility Comments Pt able to independently get around in the room at this time but needing cues to slow down. OT- Balance Assessment Sitting Balance and Reactions Static Sitting Balance Ability Normal Dynamic Sitting Balance Ability Normal Standing Balance and Reactions Static Standing Balance Ability Normal Dynamic Standing Balance Ability Good Comments Other Balance Tests/Deviations/Treatment Pt able to safely pick up worker item : from the floor at this time. M8 OT- IP Objective Assessments Start: 01/27/23 12:26 Freq: Status: Active Protocol: Document 01/27/23 10:20 [facility] (Rec: 01/27/23 13:13 [facility] [id number]) OT Gross Range of Motion Upper Extremity Range of Motion Assessment Within Functional Limits OT Strength Upper Extremity Strength Assessment Within Functional Limits OT- Coordination Assessment Upper Extremity Finger to Nose Test Within Functional Limits Finger Tapping Test Within Functional Limits OT-Muscle Tone Assessment Muscle Tone WNL Yes OT Sensation Assessment Comments Summary Comments Intact for sensation, mildly decreased for proprioception distally for RUE. M9 OT- IP Assessment and Plan Start: 01/27/23 12:26 Freq: Status: Active Protocol: Document 01/27/23 10:20 [facility] (Rec: 01/27/23 13:13 [facility] [id number]) OT Summary Assessment and Plan Potential Rehabilitation Potential Excellent Analytic Complexity at Evaluation Moderate Summary OT Impairments Coordination,Bathing,Activity Tolerance Progress Towards Goals Progressing Toward Goals Assessment Summary Pt MOD complexity and main barriers are pt is a bit impulsive and needing to slow down. Pt's RUE mildly decreased for coordination during 9 hole peg test and scoring at 50th percentile for age. 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 Pt resting her right hand on dorsal side while on the bed with left hand on palmar side and not aware. Pt at times has right thumb flexed and in a loose ophthalmic medical technologist and not aware. Decreased proprioception for right hand. Pt has a very supportive to be able to assist pt at home. Pending progress, pt may benefit from outpt OT to coordination needs. Goals Dressing Goal Independent Toileting Goal Independent Bathing Goal Independent Toilet Transfer Goal Independent Shower Transfer Goal Independent Days to Meet Goals 2 Frequency of Treatment Frequency Of Treatment Once a Day Treatment Plan OT Treatment Plan ADL Training,Functional Mobility,Therapeutic Exercises ,Patient/Family Education, Discharge Planning Other Treatment Recommendations and Next shower, redo [place] Part Treatment Focus B Discharge Recommendations OT Discharge Recommendations Home with Assistance Home Equipment Needs shower chair? Transportation Needs at Discharge Private Vehicle
--- NOTE | 2023-01-27 12:02 | P.PN_ITS ---
Subjective Subjective Interval history: Maryjane Frost is a 67-year-old female history hypertension, HLD, breast CA, anal CA, tobacco abuse, PVD with left femoral stent x2 presenting today with sudden onset of dizziness vomiting mild headache, left arm shaking and slurred speech (1 hr per spouse), last known normal 3:00 p.m. patient reports no other associated symptoms, no previous event like this prior, and symptoms had resolved by arrival in ED. Patient noted a sister had a heart attack and stroke - at the age of 62. MRI confirms:1. 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 Not complaining of any new symptoms today. Exam Vital Signs (past 8 hours): - 01/27/ 08:00 Temperature 97.1 F L Pulse Rate 64 Respiratory Rate 17 Blood Pressure 132/61 Pulse Oximetry 96 Oxygen Flow Rate 0 Oxygen Delivery Method Room Air Oxygen Flow Rate 0 Narrative Exam Narrative: General:? Patient is a well-developed, well-nourished in no distress at this time. HEENT:? Normocephalic, atraumatic, extraocular muscles intact, oral pharynx is clear and mucous membranes are moist.? Neck is supple and symmetric, trachea is midline, no adenopathy, no thyroid enlargement, nontender, no masses palpated.? Negative for JVD Chest:? Normal AP diameter and contour without kyphoscoliosis, no nasal flaring, retractions, or tachypneic labored Lungs:? Auscultation of all lung guerra are clear without adventitious sounds, wheezes, rhonchi, or rales. Cardio:? S1 & S2 with regular rate and rhythm without murmur, rubs, or gallops, no carotid bruit, no cardiac pulsations present. Abdomen:? Soft nontender, negative for organomegaly, or masses.? Bowel sounds are present in all 4 quadrants without guarding or rebound, no CVA tenderness. Musculoskeletal:? Muscle strength and tone are equal within normal limits, no deformity, crepitus, effusions, cyanosis, clubbing or edema present.? Full range of motion intact radial and pedal pulses are normal. Skin:? Warm dry and intact without rashes, ulcerations or petechiae.? Neuro:? Alert and orientated x3, strength is +5/5 in all extremities, sensation to touch intact, no gross deficits noted of cranial nerves.? Psych:? Patient has a well-kept appearance, appropriate affect, mental status attitude thought context and judgment are appropriate for age Objective Labs 01/26/23 19:00 01/27/23 01:30 Labs: Laboratory Results - last 24 hr 01/26/23 01/26/23 01/26/23 19:00 19:00 19:00 WBC 9.1 RBC 4.72 Hgb 15.3 Hct 43.6 MCV 92.3 MCH 32.5 MCHC 35.2 RDW 14.1 Plt Count 155 Neut % (Auto) 71.4 Lymph % (Auto) 22.0 L Bonner % (Auto) 5.0 Eos % (Auto) 1.0 L Baso % (Auto) 0.6 Neut # (Auto) 6500 Lymph # (Auto) 2000 Bonner # (Auto) 500 Eos # (Auto) 100 Baso # (Auto) 100 PT 10.6 INR 0.9 APTT 30 Sodium 138 Potassium 4.1 Chloride 105 Carbon Dioxide 26 BUN 23 H Creatinine 1.02 Estimated GFR > 60 BUN/Creatinine Ratio 22.5 H Glucose 92 Calcium 9.4 Magnesium Total Bilirubin 1.3 AST 39 H ALT 48 H Alkaline Phosphatase 95 Total Creatine Kinase 56 CK-MB (CK-2) TNP CK-MB (CK-2) Rel Index TNP Troponin I < 0.012 NT-Pro-B Natriuret Pep Total Protein 7.7 Albumin 4.5 Globulin 3.2 Albumin/Globulin Ratio 1.4 Triglycerides Cholesterol LDL Cholesterol, Calc HDL Cholesterol Lipase 142 Ethyl Alcohol SARS-CoV-2 (PCR) 01/26/23 01/26/23 01/27/23 19:00 21:56 01:30 WBC RBC Hgb Hct MCV MCH MCHC RDW Plt Count Neut % (Auto) Lymph % (Auto) Bonner % (Auto) Eos % (Auto) Baso % (Auto) Neut # (Auto) Lymph # (Auto) Bonner # (Auto) Eos # (Auto) Baso # (Auto) PT INR APTT Sodium 141 Potassium 3.9 Chloride 105 Carbon Dioxide 30 BUN 22 H Creatinine 0.97 Estimated GFR > 60 BUN/Creatinine Ratio 22.7 H Glucose 123 H Calcium 9.1 Magnesium 2.0 Total Bilirubin AST ALT Alkaline Phosphatase Total Creatine Kinase CK-MB (CK-2) CK-MB (CK-2) Rel Index Troponin I < 0.012 NT-Pro-B Natriuret Pep 63 Total Protein Albumin Globulin Albumin/Globulin Ratio Triglycerides 260 H Cholesterol 153 LDL Cholesterol, Calc 43 HDL Cholesterol 58 Lipase Ethyl Alcohol < 10 SARS-CoV-2 (PCR) Negative PFSH Medical History Anal cancer Breast cancer HTN (hypertension) Peripheral vascular disease Tobacco abuse Surgical History H/O: hysterectomy History of aorto-femoral bypass Hx of lumpectomy Family History (Updated 01/27/23 @ 01:42 by Malia Tinoco [facility]) Mother Hypertension Father Hypertension Sister No problems noted. Social History marital status: household members: spouse occupational status: previously employed Smoking Status: Current every day smoker alcohol intake: never substance use type: does not use Assessment & Plan Assessment & Plan narrative: 1. CVA, acute, present on admssion. Confirmed by MRI showing left cerebellar infarcts in PICA distribution. Symptoms have resolved -when presenting, dizziness vomiting mild headache, left arm shaking and slurred speech (1 hr per spouse), last known normal 3:00 p.m. on day of presentation -patient admitted under TIA/stroke protocol -Plavix, ASA, Lipitor -ordered ECHO, troponin, lipid, hepatitis panel, A1c, BNP -MRI confirmed CVA left cerebellar infarct in distribution pattern consistent with the patient's presenting symptoms -head CT negative -negative bedside swallow, SHAGGER assessment pending 2. Hypertensive urgency, acute in the setting of essential hypertension, acute on chronic, present on admission -ED BP 191/81, 197/91, 186/88.? At the time of admit temp 98?, admit BP 133/61. Now 132/61. Allowing permissive hypertension with holding patient's current medications for antihypertensive. -heart score: 3 -last echo 03/07/2022 EF 55-60%-recommend outpatient follow-up with Cardiology for echo and stress test -permissive hypertension -continue amlodipine once permissive hypertension is done 3. Hyperlipidemia related to peripheral vascular disease, chronic, present on admission -substitute Lipitor for rosuvastatin and increase dose to 80 mg daily -lipid panel ordered 4. Tobacco abuse, acute on chronic, present on admission -discussed the risks related to hyperlipidemia, PVD, TIA and stroke, MA -counseling provided regarding tobacco cessation -patient has nicotine patches at home and advised her to use these once discharged with 14 mg daily for 4 weeks and then 7 mg daily for 6 weeks, patient smokes about 7-10 cigarettes per day. Has tried Wellbutrin but it makes her feel sick Code status:? Full Surrogate decision maker:? Spouse Pravin Frost YOLANDA PCR:? Negative DVT/VTE prophylaxis:? Lovenox and SCDs
[2023-01-27 12:26] LABS: Troponin I < 0.012 ng/mL (0.01-0.034)
--- NOTE | 2023-01-27 13:16 | CM.DANOTE ---
Patient is a 67 yo female who was admitted on 01/27/23 for TIA vs CVA r/o. Pt has [facility] and [employer] for insurance and her PCP is Carly Harper. EMR was reviewed. Per MD, pt with hx of breast and anal CA, stent placement and admitted for hypertensive urgency. PT/OT ordered and recommending safe d/c home and outpt OT. SW met briefly bedside with pt and spouse and explained role and they confirm they live at home in [place] and both are active and independent at baseline and pt drives some and denies DME for ambulation. Pt denies any hx of HH or SNF and feels her symptoms have resolved and is hopeful for home later today. Spouse confirms he was bedside during PT eval and feels confident with plan of discharge home and can provide transport at d/c. Plan: SW to follow for likely plan of discharge to home via spouse POV and outpt OT recommendation and any further identified discharge planning needs. LO [place] Discharge Planning/Care Management CM Discharge Assessment Start: 01/27/23 13:14 Freq: Status: Active Protocol: Document 01/27/23 13:14 [facility] (Rec: 01/27/23 13:16 [facility] [id number]) Discharge Planning Assessment Assigned Bung Remover LO Velasquez DPOA/Assigned Designee Name Spouse Pravin Contact Information [phone] Advance Directives? No Advance Directives on File No History Provided By Patient,Significant Other, Medical Record Has Patient been admitted in last 30 No days? Prior Living Arrangements House Household Members spouse Type of transporation used prior to Drives own vehicle admit Independent with ADL's Yes Is patient alert and oriented? Yes Caregiver for Another No Patient/Family Preference OP OT Therapy Barriers to Discharge No Discharge Plan Home Community Services Occupational Therapy Transportation Arrangement spouse bedside and can transport at d/c Referrals Initiated None needed Whiteboard Updated in Patient Room with Yes name and ext. # of Bung Remover Review Status In Process Please Provide Date Initial DC 01/27/23 Assessment Was Performed Next Review Type Continued Stay Review
--- NOTE | 2023-01-27 18:14 | ST.IPSCREEN ---
Pt was laying in bed when CUSTOMER SOLUTIONS COORDINATOR and CUSTOMER SOLUTIONS COORDINATOR internal wholesaler arrived. She sat up and greeted them upon arrival. She was alert and oriented x3. Completed OME, pt was observed to have no teeth, but otherwise structure and function of oral mechanism was WNL for the purposes of speech and swallowing. Pt reported she has dentures that do not fit well (as she lost 20lbs after being fitted for them), but work for mastication if she puts them in several minutes before eating. Slight slurred speech, likely due to edentulous status. Speech therapy is not recommended at this time.
--- NOTE | 2023-01-27 18:40 | P.DS_ITS ---
History of Present Illness History of Present Illness Date Patient Seen: 01/27/23 Chief complaint: Left Arm Shaking/Can't Walk/Throwing Up Discharge Providers Provider Date of admission: 01/27/23 00:30 Discharge Date: 01/27/23 Primary care physician: ERLINDA Hall Consults: 01/26/23 20:00 Consult to Occupational Therapy Evaluate & Treat Comment: Physician Instructions: Evaluate and treat Consult to Physical Therapy Evaluate & Treat Comment: Physician Instructions: Evaluate and Treat 01/26/23 20:04 Consult to Discharge Planning Routine Comment: 01/27/23 00:33 Consult After Hours PICC Line RN Routine Comment: Place 2 lumen midline 01/27/23 12:08 Consult to Speech Therapy Evaluate & Treat Comment: Assess post CVA Physician Instructions: Evaluate and treat 01/27/23 12:09 Consult to Physical Therapy Evaluate & Treat Comment: Assess post CVA Physician Instructions: Evaluate and Treat Discharge provider: Cherelle Patten MD Summary Hospital Course Discharge Diagnosis: CVA with no sequelae MRI documentation of acute left PICA distribution of cerebellar infarct 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 patient reports no other associated symptoms, no previous event like this prior, and symptoms had resolv ed by arrival in ED. Patient noted a sister had a heart attack and stroke - at the age of 62. MRI confirmed:1. 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 Patient was placed on aspirin and decreased to 81 mg daily for 325 mg daily. She was also continued on clopido grel at 75 mg daily for a total of 21 days. Echocardiogram was unremarkable and [facility] [employer] evaluation unremarkable. And was discharged for follow-up in the community. Status at Discharge Cognitive/behavioral status at discharge: at baseline, oriented Functional status at discharge: independent ambulation Overall status at discharge: patient is back to baseline Time Spent with Patient Time spent: Greater than 30 minutes Time spent discussing smoking cessation with patient: more than 10 minutes Exam Vital Signs (past 8 hours): - 01/27/23 12:00 01/27/23 15:00 Temperature 97.5 F L 97.3 F L Pulse Rate 67 70 Respiratory Rate 17 17 Blood Pressure 143/68 H 148/86 H Pulse Oximetry 95 97 Oxygen Flow Rate 0 0 Oxygen Delivery Method Room Air Oxygen Flow Rate 0 Narrative Exam Narrative: General:? Patient is a well-developed, well-nourished in no distress at this time. HEENT:? Normocephalic, atraumatic, extraocular muscles intact, oral pharynx is c lear and mucous membranes are moist.? Neck is supple and symmetric, trachea is midline, no adenopathy, no thyroid enlargement, nontender, no masses palpated.? Negative for JVD Chest:? Normal AP diameter and contour without kyphoscoliosis, no nasal flaring, retractions, or tachypneic labored Lungs:? Auscultation of all lung guerra are clear without adventitious sounds, wheezes, rhonchi, or rales. Cardio:? S1 & S2 with regular rate and rhythm without murmur, rubs, or gallops, no carotid bruit, no cardiac pulsations present. Abdomen:? Soft nontender, negative for organomegaly, or masses.? Bowel sounds are present in all 4 quadrants without guarding or rebound, no CVA tenderness. Musculoskeletal:? Muscle strength and tone are equal within normal limits, no deformity, crepitus, effusions, cyanosis, clubbing or edema present.? Full range of motion intact radial and pedal pulses are normal. Skin:? Warm dry and intact without rashes, ulcerations or petechiae.? Neuro:? Alert and orientated x3, strength is +5/5 in all extremities, sensation to touch intact, no gross deficits noted of cranial nerves.? Psych:? Patient has a well-kept appearance, appropriate affect, mental status attitude thought context and judgment are appropriate for age Objective Labs 01/26/23 19:00 01/27/23 01:30 Labs: Laboratory Results - last 24 hr 01/26/23 01/26/23 01/26/23 19:00 19:00 19:00 WBC 9.1 RBC 4.72 Hgb 15.3 Hct 43.6 MCV 92.3 MCH 32.5 MCHC 35.2 RDW 14.1 Plt Count 155 Neut % (Auto) 71.4 Lymph % (Auto) 22.0 L [place] % (Auto) 5.0 Eos % (Auto) 1.0 L Baso % (Auto) 0.6 Neut # (Auto) 6500 Lymph # (Auto) 2000 [place] # (Auto) 500 Eos # (Auto) 100 Baso # (Auto) 100 PT 10.6 INR 0.9 APTT 30 Sodium 138 Potassium 4.1 Chloride 105 Carbon Dioxide 26 BUN 23 H Creatinine 1.02 Estimated GFR > 60 BUN/Creatinine Ratio 22.5 H Glucose 92 Calcium 9.4 Magnesium Total Bilirubin 1.3 AST 39 H ALT 48 H Alkaline Phosphatase 95 Total Creatine Kinase 56 CK-MB (CK-2) TNP CK-MB (CK-2) Rel Index TNP Troponin I < 0.012 NT-Pro-B Natriuret Pep Total Protein 7.7 Albumin 4.5 Globulin 3.2 Albumin/Globulin Ratio 1.4 Triglycerides Cholesterol LDL Cholesterol, Calc HDL Cholesterol Lipase 142 Ethyl Alcohol SARS-CoV-2 (PCR) 01/26/23 01/26/23 01/27/23 19:00 21:56 01:30 WBC RBC Hgb Hct MCV MCH MCHC RDW Plt Count Neut % (Auto) Lymph % (Auto) [place] % (Auto) Eos % (Auto) Baso % (Auto) Neut # (Auto) Lymph # (Auto) [place] # (Auto) Eos # (Auto) Baso # (Auto) PT INR APTT Sodium 141 Potassium 3.9 Chloride 105 Carbon Dioxide 30 BUN 22 H Creatinine 0.97 Estimated GFR > 60 BUN/Creatinine Ratio 22.7 H Glucose 123 H Calcium 9.1 Magnesium 2.0 Total Bilirubin AST ALT Alkaline Phosphatase Total Creatine Kinase CK-MB (CK-2) CK-MB (CK-2) Rel Index Troponin I < 0.012 NT-Pro-B Natriuret Pep 63 Total Protein Albumin Globulin Albumin/Globulin Ratio Triglycerides 260 H Cholesterol 153 LDL Cholesterol, Calc 43 HDL Cholesterol 58 Lipase Ethyl Alcohol < 10 SARS-CoV-2 (PCR) Negative 01/27/23 11:30 WBC RBC Hgb Hct MCV MCH MCHC RDW Plt Count Neut % (Auto) Lymph % (Auto) [place] % (Auto) Eos % (Auto) Baso % (Auto) Neut # (Auto) Lymph # (Auto) [place] # (Auto) Eos # (Auto) Baso # (Auto) PT INR APTT Sodium Potassium Chloride Carbon Dioxide BUN Creatinine Estimated GFR BUN/Creatinine Ratio Glucose Calcium Magnesium Total Bilirubin AST ALT Alkaline Phosphatase Total Creatine Kinase CK-MB (CK-2) CK-MB (CK-2) Rel Index Troponin I < 0.012 NT-Pro-B Natriuret Pep Total Protein Albumin Globulin Albumin/Globulin Ratio Triglycerides Cholesterol LDL Cholesterol, Calc HDL Cholesterol Lipase Ethyl Alcohol SARS-CoV-2 (PCR) PFSH Medical History Anal cancer Breast cancer HTN (hypertension) Peripheral vascular disease Tobacco abuse Surgical History H/O: hysterectomy History of aorto-femoral bypass Hx of lumpectomy Family History Mother Hypertension Father Hypertension Sister No problems noted. Social History marital status: household members: spouse occupational status: previously employed Smoking Status: Current every day smoker alcohol intake: never substance use type: does not use Discharge Plan Discharge Plan Patient Disposition: Home Provider Discharge Comment: Patient considering finding a provider closer to [facility]. She should pickling grader her prescriptions as prescribed and call the clinic associated with [facility] to see if there is an opening. Follow in the morning. Follow-up within 1-2 weeks following hospital discharge. Discharge orders & Medications Prescriptions: New aspirin [Adult Low Dose Aspirin] 81 mg tablet,delayed release (DR/EC) 81 mg PO DAILY Qty: 30 0RF atorvastatin [Lipitor] 20 mg Tablet 80 mg PO BEDTIME Qty: 30 0RF atorvastatin 80 mg tablet 80 mg PO BEDTIME Qty: 30 0RF clopidogrel 75 mg tablet 75 mg PO DAILY Qty: 30 0RF clopidogrel 75 mg Tablet 75 mg PO DAILY Qty: 20 0RF aspirin 81 mg tablet,delayed release (DR/EC) 81 mg PO DAILY Qty: 30 0RF Continued amlodipine 10 mg Tablet 10 mg PO BEDTIME Discontinued varenicline [Chantix Continuing Month Box] 1 mg tablet 1 mg PO BID Qty: 56 1RF atorvastatin 80 mg tablet 80 mg PO BEDTIME nystatin 100,000 unit/gram powder 1 applic topical TID Qty: 15 2RF Rx Instructions: Apply topically three times daily as needed for rash varenicline [Chantix Starting Month Box] 0.5 mg (11)- 1 mg (42) tablets,dose pack See Rx Instructions PO PER PKG DIR Qty: 53 0RF Rx Instructions: PO PER PKG DIR amlodipine 5 mg tablet 5 mg PO BID Qty: 180 3RF atorvastatin 80 mg tablet 80 mg PO BEDTIME Qty: 90 3RF rosuvastatin 5 mg Tablet 5 mg PO BEDTIME Follow up/Referrals: Carly Harper, [employer] [Primary Care Provider] - Visit Report/Discharge Packet Instructions: Atorvastatin, Clopidogrel Stand Alone Forms: Patient Portal/API, Stroke Signs & Symptoms Discharge Data Primary Care Provider: Carly Harepr Discharges patient from system. Discharge Date/Time: 01/27/23 19:37
[2023-01-28 05:27] LABS: Labcorp Hemoglobin (Hb) A1c 5.4 % (4.8-5.6)
[2023-01-29 09:18] LABS: HBsAg Screen Negative (Negative); Hepatitis A Antibody IgM Negative (Negative); Hepatitis B Core Antibody IgM Negative (Negative); Hepatitis C Antibody Non Reactive (Non Reactive)
== END 2023-01-27 19:37 | disposition home or self-care (01) | DRG 66 ==
LOC: ED 21:40 → AC 01-27 08:00
PROVIDERS: Emergency Medicine; Admitting Provider Nurse Practitioner Family; Emergency Provider Emergency Medicine; PCP Nurse Practitioner Family; Referring Provider Emergency Medicine; Visit Provider Nurse Practitioner Family
DX: I63.9 Cerebral infarction, unspecified (principal); F17.200 Nicotine dependence, unspecified, uncomplicated; I16.0 Hypertensive urgency; I10 Essential (primary) hypertension; E78.5 Hyperlipidemia, unspecified; I73.9 Peripheral vascular disease, unspecified; R47.81 Slurred speech; R29.700 NIHSS score 0; Z20.822 Contact with and (suspected) exposure to COVID-19
CPT/HCPCS: 36415; 70450; 70496; 70498; 70551; 71045; 80048; 80053; 80061; 80074; 80320; 82550; 83036; 83690; 83735; 83880; 84484; 85025; 85610; 85730; 87635; 93005; 93306; 97161; 97166; 99283; 99284; C9803; J1650; Q9967

== ENCOUNTER → 2023-06-24 10:59 | Outpatient (CLI) | payer MEDICARE, OTHER, SELFPAY ==
[2023-01-27 03:55] VITALS: BMI 25.4
--- NOTE | 2023-06-24 11:05 | DI.RAD.S_ITS ---
PROCEDURE: XR LUMBAR SPINE 2-3V INDICATIONS: eval back pain TECHNIQUE: 3 views of the lumbar spine were acquired. COMPARISON: [facility], CR, XR LUMBAR SPINE 2-3V, 05/02/2019, 18:51. FINDINGS: Bones: 5 [id number] vertebrae are present. There is normal bony alignment. No vertebral body compression fractures. No suspicious bony lesions. Mild disc space narrowing and moderate hypertrophic facet joints noted in lower lumbar spine. Soft tissues: Overlying bowel gas pattern is normal. Atherosclerotic calcification in the abdominal aorta noted without evidence of aneurysm. Left medial breast surgical clips and left iliac vascular stents noted, new from the prior. IMPRESSION: Lower lumbar spine degenerative disc disease and arthropathy Atherosclerotic vascular calcification and iliac stents in place Approved by: Pedro Bush M.D. on 06/24/2023 at 16:12
[2023-06-24 12:16] LABS: Hemoglobin A1C% w Est Avg Glu 5.3 % (4.0-6.0)
[2023-06-24 12:38] LABS: Alanine Aminotransferase 49 IU/L (<35); Albumin 4.6 g/dL (3.5-5.0); Albumin Globulin Ratio 1.6 (1.0-2.8); Alkaline Phosphatase 109 U/L (38-126); Aspartate Aminotransferase 39 IU/L (14-36); BUN Creatinine Ratio 22.5 (6-22); Bilirubin Total 1.2 mg/dL (0.2-1.3); Blood Urea Nitrogen 18 mg/dL (7-17); Calcium 9.6 mg/dL (8.4-10.2); Carbon Dioxide 28 mmol/L (22-32); Chloride 104 mmol/L (98-107); Cholesterol 119 mg/dL (140-199); Estimated Glomerular Filt Rate > 60 mL/min (>60); Globulin 2.8 g/dL (1.7-4.1); Glucose 89 mg/dL (80-110); HDL Cholesterol 47 mg/dL (40-60); HEMOLYSIS 20 (0-50); LDL Cholesterol Calculated 37 mg/dL (<100); Sodium 140 mmol/L (137-145); Total Protein 7.4 g/dL (6.3-8.2); Triglycerides 174 mg/dL (35-150)
== END ==
LOC: LAB 11:00 → RAD 11:05
PROVIDERS: PCP Family Medicine; Referring Provider Family Medicine; Visit Provider Family Medicine
DX: M47.816 Spondylosis without myelopathy or radiculopathy, lumbar region (principal); M51.36 Other intervertebral disc degeneration, lumbar region; I70.0 Atherosclerosis of aorta; M54.9 Dorsalgia, unspecified; E78.5 Hyperlipidemia, unspecified; I10 Essential (primary) hypertension
CPT/HCPCS: 36415; 72100; 80053; 80061; 83036

== ENCOUNTER → 2023-07-25 10:31 | Outpatient (CLI) | payer MEDICARE, OTHER, SELFPAY ==
[2023-01-27 03:55] VITALS: BMI 25.4
[2023-07-25 13:17] LABS: Hemoglobin A1C% w Est Avg Glu 5.3 % (4.0-6.0)
[2023-07-25 13:19] LABS: Alanine Aminotransferase 41 IU/L (<35); Albumin 4.3 g/dL (3.5-5.0); Albumin Globulin Ratio 1.5 (1.0-2.8); Alkaline Phosphatase 91 U/L (38-126); Aspartate Aminotransferase 30 IU/L (14-36); BUN Creatinine Ratio 20.5 (6-22); Bilirubin Total 1.7 mg/dL (0.2-1.3); Blood Urea Nitrogen 18 mg/dL (7-17); Calcium 10.1 mg/dL (8.4-10.2); Carbon Dioxide 26 mmol/L (22-32); Chloride 106 mmol/L (98-107); Estimated Glomerular Filt Rate > 60 mL/min (>60); Globulin 2.8 g/dL (1.7-4.1); Glucose 86 mg/dL (80-110); HEMOLYSIS 21 (0-50); Potassium 4.4 mmol/L (3.4-5.1); Sodium 140 mmol/L (137-145); Total Protein 7.1 g/dL (6.3-8.2)
== END ==
PROVIDERS: PCP Family Medicine; Referring Provider Family Medicine; Visit Provider Family Medicine
DX: R89.9 Unspecified abnormal finding in specimens from other organs, systems and tissues (principal)
CPT/HCPCS: 36415; 80053; 83036

== ENCOUNTER 2024-06-28 15:49 | Emergency (ER) | payer MEDICARE, OTHER, SELFPAY ==
[2023-01-27 03:55] VITALS: BMI 25.4
[2024-06-28] VITALS (9 sets, daily range): BP systolic 118–172; BP diastolic 68–90; PULSE 54–73; RESP 16–30; TEMP 36.4; O2SAT 94–98; BMI 25.3
--- NOTE | 2024-06-28 16:07 | DI.RAD.S_ITS ---
PROCEDURE: XR CHEST 1V INDICATIONS: chest pain TECHNIQUE: One view of the chest was acquired. COMPARISON: [facility], CR, XR CHEST 1V, 01/26/2023, 18:09. [facility], CR, XR CHEST 1V, 10/25/2022, 20:40. FINDINGS: Surgical changes and devices: Surgical clips project over the left hemithorax. Lungs and pleura: Lungs are clear. No pleural effusions or pneumothorax. Mediastinum: Mediastinal contours appear normal. Heart size is normal. Bones and chest wall: No suspicious bony lesions. Overlying soft tissues appear unremarkable. IMPRESSION: No acute cardiopulmonary abnormality is seen. Dictated by: Pako Mahan M.D. on 06/28/2024 at 17:09 Approved by: Pako Mahan M.D. on 06/28/2024 at 17:09
--- NOTE | 2024-06-28 16:07 | EKG_ITS ---
[address] [address] Test Date: 2024-06-28 Pat Name: Maryjane Frost Department: Room: Gender: Female Urology Nurse: DEVANG : 1955 Requested By: Order Number: [id number] Reading MD: Alvin Lance Measurements Intervals [place] Rate: 52 P: 69 [place]: 154 QRS: 57 QRSD: 100 T: 33 QT: 470 QTc: 437 Interpretive Statements Sinus bradycardia Electronically Signed On 06-28-2024 16:55:45 PDT by Alvin Lance
[2024-06-28 16:39] LABS: Add Manual Diff / Slide Review NO; Basophils Absolute Auto 100 /uL (0-100); Basophils Percent Auto 0.5 % (0-2); Eosinophils Absolute Auto 100 /uL (0-450); Eosinophils Percent Auto 0.7 % (2-4); Hematocrit 44.1 % (36-46); Lymphocytes Absolute Auto 1600 /uL (1100-4500); Lymphocytes Percent Auto 16.9 % (25-40); Mean Corpuscular HGB Conc 33.9 % (30-36); Mean Corpuscular Hemoglobin 32.7 PG (26-34); Mean Corpuscular Volume 96.5 fL (80-100); Monocytes Absolute Auto 500 /uL (0-900); Monocytes Percent Auto 4.9 % (3-14); Neutrophils Absolute Auto 7500 /uL (1500-7000); Platelet Count 144 X10^3/uL (150-400); Red Blood Cell Count 4.57 X10^6/uL (4.0-5.2); Red Cell Distribution Width 13.5 % (11.6-14.8); White Blood Cell Count 9.7 X10^3/uL (4.5-11.0)
[2024-06-28 16:45] LABS: INR 0.9 (0.9-1.3); Prothrombin Time 10.4 SECONDS (9.4-12.5)
[2024-06-28 16:48] LABS: PTT Partial Thromboplastin Tim 29 SECONDS (25.1-36.5)
[2024-06-28 16:51] LABS: Alanine Aminotransferase 28 IU/L (<35); Albumin 3.7 g/dL (3.5-5.0); Albumin Globulin Ratio 1.3 (1.0-2.8); Alkaline Phosphatase 91 U/L (38-126); Aspartate Aminotransferase 28 IU/L (14-36); BUN Creatinine Ratio 16.5 (6-22); Blood Urea Nitrogen 16 mg/dL (7-17); Calcium 8.5 mg/dL (8.4-10.2); Carbon Dioxide 26 mmol/L (22-32); Chloride 110 mmol/L (98-107); Creatine Kinase 44 U/L (30-135); Estimated Glomerular Filt Rate > 60 mL/min (>60); Globulin 2.9 g/dL (1.7-4.1); Glucose 91 mg/dL (80-110); HEMOLYSIS 18 (0-50); Lipase 161 U/L (23-300); Magnesium 1.9 mg/dL (1.6-2.3); Potassium 4.1 mmol/L (3.4-5.1); Sodium 140 mmol/L (137-145); Total Protein 6.6 g/dL (6.3-8.2)
[2024-06-28 17:02] LABS: NT-proBNP (BNP-Adult 18+) 121 pg/mL (<125); Troponin I < 0.012 ng/mL (0.01-0.034)
--- NOTE | 2024-06-28 18:44 | ED.DIZZY ---
HPI - Dizziness General Chief Complaint: Syncope Stated Complaint: near syncope w/ bm Time Seen by Provider: 06/28/24 18:04 Source: patient and EMS Mode of arrival: EMS History of Present Illness HPI Narrative: 69-year-old female presents by EMS from home for near syncopal episode. Patient states that she was had some constipation and associated lower abdominal pain. She took some laxatives and was attempting to have a bowel movement when she felt lightheaded and dizzy. She states that her is a hypochondriac and became very concerned, calling 911. Patient states that since she has arrived to the emergency department she has had a bowel movement and her abdominal pain has resolved. She states that she feels well and is ready to go home. Related Data Previous Rx's Medication Instructions Recorded aspirin 81 mg tablet,delayed 81 mg PO DAILY #30 tabs 01/27/23 release (Adult Low Dose Aspirin) clopidogrel 75 mg tablet 75 mg PO DAILY #30 tabs 01/27/23 methocarbamol 500 mg tablet 500 mg PO TID PRN back pain #12 06/12/23 tabs celecoxib 200 mg capsule (Celebrex) 200 mg PO BID #60 caps 06/24/23 tizanidine 4 mg tablet 4 mg PO BID PRN muscle spasticity 06/24/23 #60 tabs atorvastatin 20 mg tablet 20 mg PO BEDTIME hyperlipidemia 07/29/23 #90 tabs amlodipine 5 mg tablet 5 mg PO BID #180 tabs 03/04/24 Allergies Allergy/AdvReac Type Severity Reaction Status Date / Time nickel Allergy Unknown Verified 07/29/23 09:41 Patient History Medical History Left hip pain Dysarthria Cerebellar cerebrovascular accident (CVA) without late effect Preventative health care Chronic lower back pain Peripheral vascular disease Tobacco abuse HTN (hypertension) Anal cancer Breast cancer Surgical History History of aorto-femoral bypass Hx of lumpectomy H/O: hysterectomy Family History Mother Hypertension Father Hypertension Sister No problems noted. Social History marital status: household members: spouse occupational status: previously employed Smoking Status: Current every day smoker alcohol intake: never substance use type: does not use Smoking Status: Current every day smoker alcohol intake frequency: 0-2 drinks per day Substance Use Type: marijuana Exam Initial Vital Signs Initial Vital Signs: Vital Signs Temperature 97.5 F L 06/28/24 15:49 Pulse Rate 54 L 06/28/24 15:49 Respiratory Rate 16 06/28/24 15:49 Blood Pressure 128/68 06/28/24 15:49 Pulse Oximetry 98 06/28/24 15:49 Oxygen Delivery Method Room Air 06/28/24 15:49 Const: Awake, alert, no acute distress, nontoxic appearing Cardiac: regular rate, regular rhythm RESP: unlabored, clear bilaterally, no wheezing GI: Soft, nontender, nondistended, no rebound, no guarding Skin: Warm, Dry, intact, no rashes Neuro: AO x3, CN II-XII grossly intact, moves all extremities Course Orders Ordered: ED Orders 06/28/24 16:07 XR chest 1V Stat EKG-12 Lead Stat 06/28/24 16:16 Complete Blood Count AUTO DIFF Stat Comprehensive Metabolic Panel Stat Lipase Stat Magnesium Stat NT-proBNP (BNP-Adult 18+) Stat PTT Partial Thromboplastin Rodriguez Stat Prothrombin Time INR Stat Troponin & CK Cardiac Panel Stat Vital Signs Vital signs: Vital Signs - 8 hr 06/28/24 15:49 06/28/24 15:51 06/28/24 16:01 Temperature 97.5 F L Pulse Rate 54 L 56 L 55 L Pulse Rate [Orthostatic Lying] Pulse Rate [Orthostatic Sitting] Pulse Rate [Orthostatic Standing] Respiratory Rate 16 Blood Pressure 128/68 128/68 118/90 Blood Pressure [Orthostatic Lying] Blood Pressure [Orthostatic Sitting] Blood Pressure [Orthostatic Standing] Pulse Oximetry 98 94 96 Oxygen Delivery Method Room Air 06/28/24 17:29 06/28/24 17:31 06/28/24 17:33 Temperature Pulse Rate 63 69 72 Pulse Rate [Orthostatic Lying] Pulse Rate [Orthostatic Sitting] Pulse Rate [Orthostatic Standing] Respiratory Rate 19 30 H 23 Blood Pressure 172/79 H 167/72 H 162/76 H Blood Pressure [Orthostatic Lying] Blood Pressure [Orthostatic Sitting] Blood Pressure [Orthostatic Standing] Pulse Oximetry 97 95 98 Oxygen Delivery Method Room Air 06/28/24 17:35 Temperature Pulse Rate Pulse Rate [Orthostatic Lying] 66 Pulse Rate [Orthostatic Sitting] 72 Pulse Rate [Orthostatic Standing] 73 Respiratory Rate Blood Pressure Blood Pressure [Orthostatic Lying] 172/79 H Blood Pressure [Orthostatic Sitting] 167/72 H Blood Pressure [Orthostatic Standing] 162/76 H Pulse Oximetry Oxygen Delivery Method MDM - Dizziness Differential Diagnosis Differential diagnosis: Likely adverse reaction to drug, orthostatic hypotension and other (Vasovagal syncope) Lab Data 06/28/24 16:16 06/28/24 16:16 Labs: Lab Results 06/28/24 Range/Units 16:16 WBC 9.7 (4.5-11.0) X10^3/uL RBC 4.57 (4.0-5.2) X10^6/uL Hgb 15.0 (12.0-16.0) g/dL Hct 44.1 (36-46) % MCV 96.5 (80-100) fL MCH 32.7 (26-34) PG MCHC 33.9 (30-36) % RDW 13.5 (11.6-14.8) % Plt Count 144 L (150-400) X10^3/uL Neut % (Auto) 77.0 H (50-75) % Lymph % (Auto) 16.9 L (25-40) % [place] % (Auto) 4.9 (3-14) % Eos % (Auto) 0.7 L (2-4) % Baso % (Auto) 0.5 (0-2) % Neut # (Auto) 7500 H (6834-3502) /uL Lymph # (Auto) 1600 (3502-7945) /uL [place] # (Auto) 500 (0-900) /uL Eos # (Auto) 100 (0-450) /uL Baso # (Auto) 100 (0-100) /uL PT 10.4 (9.4-12.5) SECONDS INR 0.9 (0.9-1.3) APTT 29 (25.1-36.5) SECONDS Sodium 140 (137-145) mmol/L Potassium 4.1 (3.4-5.1) mmol/L Chloride 110 H (98-107) mmol/L Carbon Dioxide 26 (22-32) mmol/L BUN 16 (7-17) mg/dL Creatinine 0.97 (0.52-1.04) mg/dL Estimated GFR > 60 (>60) mL/min BUN/Creatinine Ratio 16.5 (6-22) Glucose 91 (80-110) mg/dL Calcium 8.5 (8.4-10.2) mg/dL Magnesium 1.9 (1.6-2.3) mg/dL Total Bilirubin 1.0 (0.2-1.3) mg/dL AST 28 (14-36) IU/L ALT 28 (<35) IU/L Alkaline Phosphatase 91 (38-126) U/L Total Creatine Kinase 44 (30-135) U/L Troponin I < 0.012 (0.01-0.034) ng/mL NT-Pro-B Natriuret Pep 121 (<125) pg/mL Total Protein 6.6 (6.3-8.2) g/dL Albumin 3.7 (3.5-5.0) g/dL Globulin 2.9 (1.7-4.1) g/dL Albumin/Globulin Ratio 1.3 (1.0-2.8) Lipase 161 (23-300) U/L Urine Dip Bedside Urine Glucose Negative Bedside Urine Bilirubin - Negative Bedside Urine Ketone - Negative Urine Specific [place] 1.015 Bedside Urine Occult Blood - Negative Bedside Urine pH 6.0 Bedside Urine Protein - Negative Bedside Urine Urobilinogen - Negative Bedside Urine Nitrite - Negative Bedside Urine Leukocytes - Negative Esterase ECG Data Interpretation: Sinus bradycardia at 52 beats per minute. Normal [place]. No ST T wave changes, no STEMI MDM Narrative Medical decision making narrative: Well-appearing patient with near syncopal episode while straining to have bowel movement. Since arrival to the emergency department patient has had several bowel movements and states that her symptoms have completely resolved. She states that she is ready to go home and has no further complaints. Laboratory work is reviewed, no acute abnormalities identified. Electrolytes within normal limits. EKG sinus bradycardia, no concerning rhythm changes or abnormalities. Patient has had somewhat downtrending platelet count since 2021. This was brought to her attention, however this has been happening over a period of 2 years and is stable for outpatient follow up. Discharge Plan Departure Patient Disposition: Home Clinical Impression: Near syncope Instructions: DI for Syncope in Adults (Fainting) Activity Restrictions/Additional Instructions: Your laboratory work, EKG, and chest x-ray were normal today. I am glad you are feeling better. Continue activity and medications as usual. Over the last 2 years your blood plateleet level has very gradually decreased. You can bring this up to your PCP at your next appointment, but this could be a normal finding. Prescriptions: No Action methocarbamol 500 mg tablet 500 mg PO TID PRN (Reason: back pain) Qty: 12 0RF celecoxib [Celebrex] 200 mg capsule 200 mg PO BID Qty: 60 2RF tizanidine 4 mg tablet 4 mg PO BID PRN (Reason: muscle spasticity) Qty: 60 1RF amlodipine 5 mg tablet 5 mg PO BID Qty: 180 1RF atorvastatin 20 mg tablet 20 mg PO BEDTIME MDD 40mg Qty: 90 2RF Rx Instructions: Start taking 20 mg tablet by mouth daily at bedtime aspirin [Adult Low Dose Aspirin] 81 mg tablet,delayed release (DR/EC) 81 mg PO DAILY Qty: 30 0RF clopidogrel 75 mg tablet 75 mg PO DAILY Qty: 30 0RF Referrals: Eddie Tucker DO [Primary Care Provider] - Stand Alone Forms: Patient Portal/API
== END 2024-06-28 19:00 | disposition home or self-care (01) ==
PROVIDERS: Emergency Medicine; Emergency Provider Emergency Medicine; PCP Family Medicine
DX: R55 Syncope and collapse (principal); R07.9 Chest pain, unspecified; R00.1 Bradycardia, unspecified
CPT/HCPCS: 71045; 80053; 81003; 82550; 83690; 83735; 83880; 84484; 85025; 85610; 85730; 93005; 99283; 99284

== ENCOUNTER → 2024-07-28 10:03 | Outpatient (CLI) | payer MEDICARE, OTHER, SELFPAY ==
[2023-01-27 03:55] VITALS: BMI 25.4
[2024-07-28 11:18] LABS: Add Manual Diff / Slide Review NO; Basophils Absolute Auto 0 /uL (0-100); Basophils Percent Auto 0.7 % (0-2); Eosinophils Absolute Auto 100 /uL (0-450); Eosinophils Percent Auto 1.2 % (2-4); Hemoglobin 15.6 g/dL (12.0-16.0); Lymphocytes Absolute Auto 2200 /uL (1100-4500); Lymphocytes Percent Auto 38.1 % (25-40); Mean Corpuscular HGB Conc 34.6 % (30-36); Mean Corpuscular Hemoglobin 32.8 PG (26-34); Mean Corpuscular Volume 94.8 fL (80-100); Monocytes Absolute Auto 400 /uL (0-900); Monocytes Percent Auto 6.6 % (3-14); Neutrophils Absolute Auto 3000 /uL (1500-7000); Neutrophils Percent Auto 53.4 % (50-75); Platelet Count 167 X10^3/uL (150-400); Red Blood Cell Count 4.74 X10^6/uL (4.0-5.2); Red Cell Distribution Width 13.5 % (11.6-14.8); White Blood Cell Count 5.7 X10^3/uL (4.5-11.0)
[2024-07-28 11:57] LABS: Hemoglobin A1C% w Est Avg Glu 5.2 % (4.0-6.0)
[2024-07-28 12:02] LABS: Alanine Aminotransferase 23 IU/L (<35); Albumin 3.8 g/dL (3.5-5.0); Albumin Globulin Ratio 1.4 (1.0-2.8); Alkaline Phosphatase 86 U/L (38-126); Aspartate Aminotransferase 23 IU/L (14-36); BUN Creatinine Ratio 20.3 (6-22); Bilirubin Total 1.3 mg/dL (0.2-1.3); Blood Urea Nitrogen 15 mg/dL (7-17); Calcium 9.3 mg/dL (8.4-10.2); Carbon Dioxide 22 mmol/L (22-32); Chloride 110 mmol/L (98-107); Cholesterol 118 mg/dL (140-199); Estimated Glomerular Filt Rate > 60 mL/min (>60); Globulin 2.7 g/dL (1.7-4.1); Glucose 84 mg/dL (80-110); HDL Cholesterol 44 mg/dL (40-60); HEMOLYSIS < 15 (0-50); LDL Cholesterol Calculated 44 mg/dL (<100); Potassium 3.8 mmol/L (3.4-5.1); Sodium 140 mmol/L (137-145); Total Protein 6.5 g/dL (6.3-8.2); Triglycerides 149 mg/dL (35-150)
[2024-07-28 12:37] LABS: TSH w/ Reflex to FT4 2.21 uIU/mL (0.47-4.68)
== END ==
PROVIDERS: PCP Family Medicine; Referring Provider Family Medicine; Visit Provider Family Medicine
DX: I10 Essential (primary) hypertension (principal); R73.03 Prediabetes; E78.5 Hyperlipidemia, unspecified; M54.50 Low back pain, unspecified; G89.29 Other chronic pain
CPT/HCPCS: 36415; 80053; 80061; 83036; 84443; 85025

== ENCOUNTER → 2024-08-18 11:42 | Outpatient (CLI) | payer MEDICARE, OTHER, SELFPAY ==
[2023-01-27 03:55] VITALS: BMI 25.4
--- NOTE | 2024-08-18 11:45 | DI.CT.S_ITS ---
PROCEDURE: CT LUNG LOW DOSE SCREENING INDICATIONS: nicotine dependence, cigarettes TECHNIQUE: Noncontrast 2.0-2.5 mm thick sections acquired from the pulmonary apices to the posterior costophrenic angles. 7 mm thick axial MIP, and 5 mm coronal and sagittal reformats were then acquired. For radiation dose reduction, the following was used: automated exposure control, adjustment of mA and/or kV according to patient size. COMPARISON: [facility], CT, CT ANGIO CHEST PE PROTOCOL, 10/25/2022, 23:37. [facility], CR, XR CHEST 1V, 06/28/2024, 16:08. FINDINGS: Image quality: Diagnostic. Lower Neck: No enlarged lymph nodes. Thyroid: No thyroid nodules which require sonographic follow up, per consensus guidelines. Axillae: No enlarged lymph nodes. Chest Wall: Unremarkable. Bones: Unremarkable. Lungs and Pleura: No pneumothorax or pleural effusions. Minimal right apical scarring. Chronic vertically oriented band of pleural thickening versus fat overlying the right lung stable since 2021. This is adjacent to unchanged appearance of mild distortion of the right chest wall possibly related to prior trauma. Heart: Heart size is normal. No pericardial effusion. Thoracic Vessels: The aorta and pulmonary arteries demonstrate normal size. Mediastinum and Kristen: No enlarged lymph nodes. Esophagus: No wall thickening. No hiatal hernia. Upper Abdomen: Visualized upper abdomen solid organs and bowel loops appear normal. IMPRESSION: No suspicious pulmonary nodules. LUNG-RADS 1; continued annual screening, if eligible. Clinically Significant Non-pulmonary Findings: None. Dictated by: Jessi Black M.D. on 08/18/2024 at 16:37 Approved by: Jessi Black M.D. on 08/18/2024 at 16:39
--- NOTE | 2024-08-18 11:45 | DI.RAD.S_ITS ---
PROCEDURE: XR DEXA AXIAL SKELETON INDICATIONS: bone density disorder COMPARISON: None. FINDINGS: Lumbar Spine: Bone mineral density 0.879 g/cm2, T score -1.5. Left Hip: Bone mineral density 0.714 g/cm2, T score -1.9. Left Femoral Neck: Bone mineral density 0.563 g/cm2, T score -2.6. Right Hip: Bone mineral density 0.692 g/cm2, T score -2.1. Right Femoral Neck: Bone mineral density 0.600 g/cm2, T score -2.2. Fracture Risk Calculation (when applicable): 10-year fracture risk of a major osteoporotic fracture 21 percent and of a hip fracture 5.2 percent. (T score greater or equal to -1.0 to: NORMAL) (T score from -1.1 to -2.4: OSTEOPENIA) (T score less than or equal to -2.5: OSTEOPOROSIS) IMPRESSION: Osteoporosis within the left femoral neck with moderate to severe osteopenia within the remaining structures. Follow-up guidelines as follows: Osteoporosis: Consider a repeat DEXA and Vertebral Fracture Assessment (VFA) exam in 2 years or sooner if medically necessary, to reassess this patient's status. Osteopenia: Consider a repeat DEXA in 2-3 years to reassess this patient's status, or if there is a new clinical indication. Normal: Consider a repeat DEXA in 5 years or sooner, or if there is a new clinical indication. All treatment decisions require clinical judgment and consideration of individual patient factors, including patient preferences, comorbidities, previous drug use, risk factors not captured in the FRAX model (e.g., frailty, falls, vitamin D deficiency, increased bone turnover, interval significant decline in bone density ) and possible under- or over-estimation of fracture risk by FRAX. In addition, the NOF Guide recommends that FDA-approved medical therapies be considered in postmenopausal women and men age >= 50 years with a: * Hip or vertebral (clinical or morphometric) fracture * T-score of <=-2.5 at the spine or hip * Ten-year fracture probability by FRAX of >= 3% for hip fracture or >=20% for major osteoporotic fracture. People with diagnosed cases of osteoporosis or at high risk for fracture should have regular bone mineral density tests. For patients eligible for Medicare, routine testing is allowed once every 2 years. The testing frequency can be increased to one year for patients who have rapidly progressing disease, those who are receiving or discontinuing medical therapy to restore bone mass, or have additional risk factors. Dictated by: Jessi Black M.D. on 08/18/2024 at 16:58 Approved by: Jessi Black M.D. on 08/18/2024 at 16:59
== END ==
PROVIDERS: PCP Family Medicine; Referring Provider Family Medicine; Visit Provider Family Medicine
DX: F17.210 Nicotine dependence, cigarettes, uncomplicated (principal); M81.0 Age-related osteoporosis without current pathological fracture; Z12.2 Encounter for screening for malignant neoplasm of respiratory organs
CPT/HCPCS: 71271; 77080

== ENCOUNTER 2024-11-25 08:06 | Day surgery (SDC) | payer MEDICARE, OTHER, SELFPAY ==
[2023-01-27 03:55] VITALS: BMI 25.4
--- NOTE | 2024-11-25 | DI.RAD.S_ITS ---
PROCEDURE: XR KUB INDICATIONS: abdominal pain TECHNIQUE: One view of the abdomen acquired. COMPARISON: [facility], CR, XR CHEST 1V, 11/25/2024, 10:06. FINDINGS: Surgical changes and devices: None. Bowel: Bowel gas pattern is normal. Soft tissues: No suspicious abdominal calcifications. Visualized solid organ contours appear normal in size. Bones: No suspicious bony lesions. IMPRESSION: No acute abnormality. No free air found. Note: Attempted to call Dr. Rendon at the extension [phone], [facility], in the technologist note provided, without success. Dictated by: Ousmane Cordao M.D. on 11/25/2024 at 10:52 Approved by: Ousmane Corado M.D. on 11/25/2024 at 10:56
--- NOTE | 2024-11-25 | DI.RAD.S_ITS ---
PROCEDURE: XR CHEST 1V INDICATIONS: abdominal pain TECHNIQUE: One view of the chest was acquired. COMPARISON: [facility], CR, XR CHEST 1V, 06/28/2024, 16:08. [facility], CR, XR CHEST 1V, 01/26/2023, 18:09. FINDINGS: Surgical changes and devices: Left-sided surgical clips stable.. Lungs and pleura: Lungs are clear. No pleural effusions or pneumothorax. Mediastinum: Mediastinal contours appear normal. Heart size is normal. Bones and chest wall: No suspicious bony lesions. Overlying soft tissues appear unremarkable. IMPRESSION: No acute cardiopulmonary abnormality is seen. Dictated by: Ousmane Corado M.D. on 11/25/2024 at 10:57 Approved by: Ousmane Corado M.D. on 11/25/2024 at 11:01
--- NOTE | 2024-11-25 09:20 | P.HP_ITS ---
History of Present Illness History of Present Illness Date Patient Seen: 11/25/24 Time Patient Seen: 09:20 Chief complaint: Screening Colonoscopy Narrative: Maryjane is a 69-year-old woman here for colonoscopy. Her last colonoscopy was in [address] Carty and there were no polyps. She has never had polyps removed but she did have anal cancer in the distant past that was treated with radiation treatment. [facility] Medical History (Updated 11/25/24 @ 09:21 by Ifeanyi Rendon MD) Left hip pain Dysarthria Cerebellar cerebrovascular accident (CVA) without late effect Preventative health care Chronic lower back pain Peripheral vascular disease Tobacco abuse HTN (hypertension) Anal cancer Breast cancer Surgical History History of aorto-femoral bypass Hx of lumpectomy H/O: hysterectomy Family History Mother Hypertension Father Hypertension Sister No problems noted. Social History marital status: household members: spouse occupational status: previously employed Smoking Status: Current every day smoker alcohol intake: never substance use type: does not use Meds Home Medications and Allergies Home Medications Medication Instructions Recorded Confirmed Type aspirin 81 mg tablet,delayed 81 mg PO DAILY #30 tabs 01/27/23 11/25/24 Rx release (Adult Low Dose Aspirin) amlodipine 5 mg tablet 5 mg PO BID #180 tabs 03/04/24 11/25/24 Rx acetaminophen 500 mg tablet 500 mg PO Q6H PRN 08/05/24 08/05/24 History (Tylenol Extra Strength) atorvastatin 10 mg tablet 10 mg PO BEDTIME hyperlipidemia 08/05/24 11/25/24 Rx #90 tabs fexofenadine [Cesilia Allergy] PO 08/05/24 08/05/24 History sodium,potassium,mag sulfates 17.5 See Rx Instructions PO .COMPLEX 10/21/24 Rx gram-3.13 gram-1.6 gram oral soln #354 mL (Suprep Bowel Prep Kit) Allergies Allergy/AdvReac Type Severity Reaction Status Date / Time nickel Allergy Unknown Verified 11/25/24 09:17 Exam Const General: No acute distress Assessment & Plan Assessment and plan (1) Colon cancer screening: Status: Acute Plan Colonoscopy Time-Based Coding :: [TOTAL MINUTES] spent with patient and on the chart (including review of chart, obtaining history, exam, reviewing outside data, placing orders, documenting exam and treatment plan, and counseling patient) on [DATE]. 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
[2024-11-25 09:21] VITALS: BP 138/67; PULSE 69; RESP 14; TEMP 36.6; O2SAT 96
[2024-11-25] MEDS: SODIUM CHLORIDE 0.9% 1,000 ML 84 ML IV (09:27)
[2024-11-25 10:05] VITALS: BP 152/68; PULSE 69; RESP 16; TEMP 36.2; O2SAT 98
--- NOTE | 2024-11-25 10:07 | PM.OP.COLON ---
Operative Date/Time/Diagnoses Date of procedure: 11/25/24 Time of procedure: 10:07 Pre-op diagnosis: Colon cancer screening Post-op diagnosis: same Procedure & Clinicians Study performed: Colonoscopy Same procedure as scheduled: Yes Surgeon: Ifeanyi Rendon Procedure Notes Procedure in detail: Surgeon: Ifeanyi Rendon MD Anesthesia: Robert Harris MD Procedure: The patient was brought to the endoscopy suite, placed in left lateral decubitus position. The patient was connected to monitoring devices. A time-out was performed. Sedation was administered. Once the patient was adequately sedated, a digital rectal exam was performed. The scope was then inserted and advanced to the cecum where the appendiceal orifice was identified and photographed. The scope was then slowly withdrawn over greater than 6 minutes. The mucosa was thoroughly inspected. No polyps or other abnormalities were found. The scope could not retroflexed in the rectum due to the fibrosis of the distal rectum from her history of radiation therapy. The scope was straightened and removed. The patient was awakened and brought to recovery. 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
[2024-11-25 10:10] VITALS: BP 140/70; PULSE 67; RESP 16; O2SAT 98
[2024-11-25 10:15] VITALS: BP 150/74; PULSE 68; RESP 16; O2SAT 98
[2024-11-25 10:20] VITALS: BP 140/70; PULSE 67; RESP 16; O2SAT 98
[2024-11-25 10:25] VITALS: BP 142/70; PULSE 80; RESP 16; TEMP 36.2; O2SAT 98
== END 2024-11-25 11:18 | disposition home or self-care (01) ==
PROVIDERS: PCP Family Medicine; Referring Provider Surgery; Visit Provider Surgery
PROC: 0DJD8ZZ Inspection of Lower Intestinal Tract, Via Natural or Artificial Opening Endoscopic (ICD-10-PCS; CPT 45378; principal; 2024-11-25 09:15)
DX: Z12.11 Encounter for screening for malignant neoplasm of colon (principal); K62.89 Other specified diseases of anus and rectum; Z85.048 Personal history of other malignant neoplasm of rectum, rectosigmoid junction, and anus; Z92.3 Personal history of irradiation; F17.200 Nicotine dependence, unspecified, uncomplicated; I73.9 Peripheral vascular disease, unspecified; I10 Essential (primary) hypertension; Z85.3 Personal history of malignant neoplasm of breast; Z86.73 Personal history of transient ischemic attack (TIA), and cerebral infarction without residual deficits
CPT/HCPCS: G0105; 71045; 74018; J2704

== ENCOUNTER → 2025-10-10 10:01 | Outpatient (CLI) | payer MEDICARE, OTHER, SELFPAY ==
[2023-01-27 03:55] VITALS: BMI 25.4
[2025-10-10 11:04] LABS: Add Manual Diff / Slide Review NO; Hematocrit 46.0 % (36-46); Hemoglobin 15.9 g/dL (12.0-16.0); Lymphocytes Absolute Auto 2700 /uL (1100-4500); Mean Corpuscular HGB Conc 34.6 % (30-36); Mean Corpuscular Hemoglobin 32.5 PG (26-34); Mean Corpuscular Volume 93.8 fL (80-100); Platelet Count 173 X10^3/uL (150-400)
[2025-10-10 11:25] LABS: Alanine Aminotransferase 18 IU/L (<35); Albumin 4.1 g/dL (3.5-5.0); Albumin Globulin Ratio 1.5 (1.0-2.8); Alkaline Phosphatase 78 U/L (38-126); Blood Urea Nitrogen 16 mg/dL (7-17); Calcium 9.3 mg/dL (8.4-10.2); Carbon Dioxide 25 mmol/L (22-32); Chloride 108 mmol/L (98-107); Cholesterol 146 mg/dL (140-199); Estimated Glomerular Filt Rate > 60 mL/min (>60); Globulin 2.8 g/dL (1.7-4.1); Glucose 84 mg/dL (70-99); HDL Cholesterol 58 mg/dL (40-60); HEMOLYSIS < 15 (0-50); Potassium 4.1 mmol/L (3.4-5.1); Sodium 141 mmol/L (137-145); Total Protein 6.9 g/dL (6.3-8.2); Triglycerides 150 mg/dL (35-150)
[2025-10-10 11:55] LABS: TSH w/ Reflex to FT4 3.09 uIU/mL (0.47-4.68)
== END ==
PROVIDERS: PCP Family Medicine; Referring Provider Family Medicine; Visit Provider Family Medicine
DX: Z00.00 Encounter for general adult medical examination without abnormal findings (principal); E78.00 Pure hypercholesterolemia, unspecified
CPT/HCPCS: 36415; 80053; 80061; 84443; 85025